=== PATIENT | female | born 1945 | race Caucasian/White ===

== ENCOUNTER → 2016-11-29 | Outpatient (CLI) | payer MEDICARE ==
--- NOTE | 2016-11-30 09:47 | MM ---
Reason for exam: screening (asymptomatic). Last mammogram was performed 1 year ago. History: Patient is postmenopausal. Family history of breast cancer in paternal cousin at age 64. Ultrasound-guided core biopsy of the left breast, January 17, 2004. Benign stereotactic core biopsy of the right breast, November 13, 2001. Core biopsy of the right breast. Excisional biopsy of the left breast. Took estrogen for 7 years beginning at age 49. Physical Findings: A clinical breast exam by your physician is recommended on an annual basis and results should be correlated with mammographic findings. MG Screening Mammo w CAD Bilateral CC and MLO view(s) were taken. Prior study comparison: November 25, 2015, bilateral MG screening mammo w CAD. November 05, 2014, bilateral MG screening mammo w CAD. The breast tissue is heterogeneously dense. This may lower the sensitivity of mammography. Finding: Architectural distortion in the upper outer quadrant of the left breast consistent with previous surgery. There is a 7mm oval density obscures margins right upper outer quadrant. ASSESSMENT: Incomplete: need additional imaging evaluation, BI-RAD 0 RECOMMENDATION: Special view mammogram of the right breast. If lesion persists on supplemental views, image directed ultrasound is recommended. [facility] will attempt to contact patient to return for supplemental views and ultrasound if indicated.
== END | disposition home or self-care (01) ==
LOC: RADMAMWWP 10:46
PROVIDERS: ATTEND Family Medicine
DX: Z12.31 Encounter for screening mammogram for malignant neoplasm of breast (principal)

== ENCOUNTER → 2016-12-05 | Outpatient (CLI) | payer MEDICARE ==
--- NOTE | 2016-12-05 10:23 | MM ---
Reason for exam: additional evaluation requested from abnormal screening. Last mammogram was performed less than 1 month ago. History: Patient is postmenopausal. Family history of breast cancer in paternal cousin at age 64. Ultrasound-guided core biopsy of the left breast, January 17, 2004. Benign stereotactic core biopsy of the right breast, November 13, 2001. Core biopsy of the right breast. Excisional biopsy of the left breast. Took estrogen for 7 years beginning at age 49. Physical Findings: Nurse did not find any significant physical abnormalities on exam. MG 3D Work Up W/Cad RT CC and MLO view(s) were taken of the right breast. Prior study comparison: November 29, 2016, bilateral MG screening mammo w CAD. November 25, 2015, bilateral MG screening mammo w CAD. The breast tissue is heterogeneously dense. This may lower the sensitivity of mammography. There is no discrete abnormality including area of concern. These results were verbally communicated with the patient and result sheet given to the patient on 12/05/16. ASSESSMENT: Incomplete: need additional imaging evaluation, BI-RAD 0 RECOMMENDATION: Ultrasound of the right breast. (upper outer quadrant)
--- NOTE | 2016-12-05 10:25 | USB ---
Reason for exam: additional evaluation requested from abnormal screening. History: Patient is postmenopausal. Family history of breast cancer in paternal cousin at age 64. Ultrasound-guided core biopsy of the left breast, January 17, 2004. Benign stereotactic core biopsy of the right breast, November 13, 2001. Core biopsy of the right breast. Excisional biopsy of the left breast. Took estrogen for 7 years beginning at age 49. US Breast Workup Limited RT Right breast ultrasound demonstrates a 0.9 x 0.5 x 0.6cm irregular, solid, hypoechoic lesion at 11 o'clock. These results were verbally communicated with the patient and result sheet given to the patient on 12/05/16. ASSESSMENT: Suspicious, BI-RAD 4 RECOMMENDATION: Ultrasound core biopsy of the right breast. Called Dr. Ferguson with mammographic findings and has scheduled an appointment for the patient for 01/10/17 at 10:[address] Peters. Biopsy scheduled for 12/20/16 at 12:20. PRELIMINARY REPORT CALLED AND FAXED TO DR. PETERS ON 12/05/16 AT 300/TP.
== END | disposition home or self-care (01) ==
LOC: RADMAMWWP 07:11
PROVIDERS: ATTEND Family Medicine
DX: R92.8 Other abnormal and inconclusive findings on diagnostic imaging of breast (principal)
CPT/HCPCS: 76642; G0206; G0279

== ENCOUNTER → 2016-12-20 | Day surgery (SDC) | payer MEDICARE ==
[~2016-12-20] MED LIST: ALPRAZolam 0.25 MG TAB ONE; BACITRACIN OINT 1 EACH PACKET TOPICAL ONE; LIDOCAINE 1% INJ 10MG/ML (20 ML MDV) ONE; SODIUM BICARB 4% 5 ML VIAL (0.48 MEQ/ML) ONE
--- NOTE | 2016-12-20 13:18 | USB ---
EXAMINATION TYPE: US biopsy breast VAD RT DATE OF EXAM: 12/20/2016 12:39 PM CLINICAL HISTORY: R92.8 abnormal mammo. TECHNIQUE: Ultrasound guided core biopsy of right breast. COMPARISON: NONE FINDINGS: The procedure of ultrasound guided core biopsy was explained to the patient. Benefits, alternatives, and risks were discussed. An informed consent was then obtained. Mammographic images and ultrasound images are reviewed. The ultrasound images are suspicious and warrant biopsy. Note is made however that this lesion is approximately 4 cm from the nipple where as the mammographic abnormality was 10 cm from the nipple. This ultrasound abnormality is not corresponding to the mammographic abnormality. Short-term follow-up of the mammographic abnormality in 6 months recommended. The patient was placed in supine positioning for imaging and for the procedure. The overlying skin was prepped and draped in usual sterile fashion. The area was cleansed with Betadine. Lidocaine buffered with bicarbonate was used as anesthetic into the skin and subcutaneous tissue up to area of concern in the right breast. A sheri was made with surgical scalpel. Under ultrasound guidance, a 12-gauge vacuum assisted mammotome biopsy device was used to obtain 6 core samples. A core sebas was placed at the biopsy site. The patient tolerated the procedure well without any immediate complication. The patient was sent for postprocedure mammogram for clip placement ordered by the physician. The patient was kept in the radiology department for short stay after the procedure and then discharged home in stable condition. Discharge instructions were reviewed with the patient. The patient will follow- up with her surgeon for the results. IMPRESSION: 1. Successful, uncomplicated ultrasound guided core biopsy of area of concern in the right breast. Recommendations: 1. Final Recommendations are pending pathology results. 2. In the absence of malignancy or clinically suspicious findings, short-term follow-up right breast mammogram in 6 months is recommended to reevaluate mammographic findings from 11/29/2016 Pathology Results: Benign BREAST, RIGHT, CORE BIOPSY: FIBROADENOMA/FIBROADENOMATOID HYPERPLASIA. BACKGROUND FIBROCYSTIC CHANGES INCLUDING FIBROSIS AND MICROCALCIFICATIONS. Recommendation Follow up ultrasound of the right breast in 6 months. KATINA
--- NOTE | 2016-12-20 14:31 | MM ---
Reason for exam: additional evaluation requested from abnormal screening. Last mammogram was performed less than 1 month ago. History: Patient is postmenopausal. Family history of breast cancer in paternal cousin at age 64. Ultrasound-guided core biopsy of the left breast, January 17, 2004. Benign stereotactic core biopsy of the right breast, November 13, 2001. Core biopsy of the right breast. Excisional biopsy of the left breast. Took estrogen for 7 years beginning at age 49. MG Diagnostic Mammo RT Wo CAD CC and ML view(s) were taken of the right breast. Prior study comparison: December 05, 2016, right breast MG 3d work up w/cad RT. November 29, 2016, bilateral MG screening mammo w CAD. ASSESSMENT: Post procedure mammogram for marker placement RECOMMENDATION: Ultrasound of the right breast in 6 months. PENDING PATHOLOGY RESULTS.
== END ==
LOC: RADUSWWP 11:08
PROVIDERS: ATTEND Surgery
DX: R92.8 Other abnormal and inconclusive findings on diagnostic imaging of breast (principal); D24.1 Benign neoplasm of right breast; N62 Hypertrophy of breast; N60.31 Fibrosclerosis of right breast; N64.89 Other specified disorders of breast; Z88.2 Allergy status to sulfonamides
CPT/HCPCS: 88305; 19083; G0206; A4648; J2001

== ENCOUNTER → 2017-07-15 | Outpatient (CLI) | payer MEDICARE ==
--- NOTE | 2017-07-15 14:50 | BD ---
EXAMINATION TYPE: MG DEXA axial skeleton. DATE OF EXAM: 07/15/2017 COMPARISON: NONE CLINICAL HISTORY: Postmenopausal female Height: 68.7 IN Weight: 173 LBS FRAX RISK QUESTIONS: Alcohol (3 or more units per day): NO Family History (Parent hip fracture): NO Glucocorticoids (More than 3mos): NO (Ex: prednisone, prednisolone, methylprednisolone, dexamethasone, and hydrocortisone). History of Fracture in Adulthood: NO Secondary Osteoporosis: 1. Type 1 Diabetes: NO 2. Hyperthyroidism: NO 3. Menopause before 45: NO 4. Malnutrition: NO 5. Chronic liver disease: NO Rheumatoid Arthritis: NO Current Tobacco Use: NO RISK FACTORS HISTORY OF: Active: YES Postmenopausal woman: AGE 49 Take estrogen and/or progesterone medications: NOT NOW How long: AGE 49 - 53 MEDICATIONS: Thyroid Medications: YES Which medication: Synthroid How Lon+ YEARS Additional Medications: CALCIUM, VIT D, SYNTHROID, CHOLESTEROL EXAM MEASUREMENTS: Bone mineral densitometry was performed using the Springpad System. Bone mineral density as measured about the Lumbar spine is: ----- L1-L4(G/cm2): 1.425 T Score Values are as follows: ----- L2: 2.0 ----- L3: 2.8 ----- L4: 1.9 ----- L1-L4: 2.0 Bone mineral density has: Increased 1.2% since study of: 06/01/2011 Bone mineral density about the R hip (g/cm2): 0.990 Bone mineral density about the L hip (g/cm2): 0.960 T Score values are as follows: -----R Neck: -0.3 -----L Neck: -0.6 -----R Total: -0.4 -----L Total: -0.7 Bone mineral density has: Decreased -10.7% since study of: 06/01/2011 IMPRESSION: Normal (Values between +1 and -1 indicate normal bone mass). Consider repeating this study in 5 year s or sooner if there is some new clinical indication. NOTE: T-SCORE=SD OF THE YOUNG ADULT MEAN.
== END | disposition home or self-care (01) ==
LOC: RADBDWWP 09:48
PROVIDERS: ATTEND Family Medicine
DX: N95.8 Other specified menopausal and perimenopausal disorders (principal)
CPT/HCPCS: 77080

== ENCOUNTER → 2017-07-15 | Outpatient (CLI) | payer MEDICARE ==
--- NOTE | 2017-07-15 12:03 | MM ---
Reason for exam: follow-up at short interval from prior study. Last mammogram was performed 7 months ago. History: Patient is postmenopausal. Family history of breast cancer in paternal cousin at age 64. Benign US biopsy breast VAD RT of the right breast, December 20, 2016. Ultrasound-guided core biopsy of the left breast, January 17, 2004. Benign stereotactic core biopsy of the right breast, November 13, 2001. Core biopsy of the right breast. Excisional biopsy of the left breast. Took estrogen for 7 years beginning at age 49. Physical Findings: Nurse did not find any significant physical abnormalities on exam. MG 3D Diag Mammo W/Cad RT CC and MLO view(s) were taken of the right breast. Prior study comparison: December 20, 2016, right breast MG diagnostic mammo RT wo CAD. December 05, 2016, right breast MG 3d work up w/cad RT. The breast tissue is heterogeneously dense. This may lower the sensitivity of mammography. There are numerous scattered stable calcifications. No suspicious abnormality. Post biopsy changes on right breast x 2. These results were verbally communicated with the patient and result sheet given to the patient on 07/15/17. ASSESSMENT: Benign, BI-RAD 2 RECOMMENDATION: Routine screening mammogram of both breasts in 4 months. Back on schedule, November 2017.
== END | disposition home or self-care (01) ==
LOC: RADMAMWWP 09:51
PROVIDERS: ATTEND Surgery
DX: R92.8 Other abnormal and inconclusive findings on diagnostic imaging of breast (principal)
CPT/HCPCS: 77080; G0206; G0279

== ENCOUNTER → 2017-11-29 | Outpatient (CLI) | payer MEDICARE ==
--- NOTE | 2017-12-03 10:15 | MM ---
Reason for exam: screening (asymptomatic). Last mammogram was performed 4 months ago. History: Patient is postmenopausal. Family history of breast cancer in paternal cousin at age 64. Benign US biopsy breast VAD RT of the right breast, December 20, 2016. Ultrasound-guided core biopsy of the left breast, January 17, 2004. Benign stereotactic core biopsy of the right breast, November 13, 2001. Core biopsy of the right breast. Excisional biopsy of the left breast. Took estrogen for 7 years beginning at age 49. Physical Findings: A clinical breast exam by your physician is recommended on an annual basis and results should be correlated with mammographic findings. MG 3D Screening Mammo W/Cad Bilateral CC and MLO view(s) were taken. Prior study comparison: July 15, 2017, right breast MG 3d diag mammo w/cad RT. December 20, 2016, right breast MG diagnostic mammo RT wo CAD. The breast tissue is extremely dense which could obscure a lesion on mammography. Finding: There are increased round, regional calcifications in the outer quadrant of the right breast, MLO appears more stable. Previous mammotome biopsy in the left breast. Post surgical changes in the left upper outer quadrant. New finding since July 15, 2017 and December 20, 2016. ASSESSMENT: Incomplete: need additional imaging evaluation, BI-RAD 0 RECOMMENDATION: Special view mammogram of the right breast. [facility] will attempt to contact patient to return for supplemental views.
== END | disposition home or self-care (01) ==
LOC: RADMAMWWP 13:47
PROVIDERS: ATTEND Family Medicine
DX: Z12.31 Encounter for screening mammogram for malignant neoplasm of breast (principal)
CPT/HCPCS: 77063; 77067

== ENCOUNTER → 2017-12-04 | Outpatient (CLI) | payer MEDICARE ==
--- NOTE | 2017-12-04 08:23 | MM ---
Reason for exam: additional evaluation requested from abnormal screening. Last mammogram was performed less than 1 month ago. History: Patient is postmenopausal. Family history of breast cancer in paternal cousin at age 64. Benign US biopsy breast VAD RT of the right breast, December 20, 2016. Ultrasound-guided core biopsy of the left breast, January 17, 2004. Benign stereotactic core biopsy of the right breast, November 13, 2001. Core biopsy of the right breast. Excisional biopsy of the left breast. Took estrogen for 7 years beginning at age 49. MG 3D Work Up W/Cad RT ML, CC with magnification, and ML with magnification view(s) were taken of the right breast. Prior study comparison: November 29, 2017, bilateral MG 3d screening mammo w/cad. July 15, 2017, right breast MG 3d diag mammo w/cad RT. The breast tissue is heterogeneously dense. This may lower the sensitivity of mammography. Previous mammotome biopsy in the right breast. Regional round and punctate calcifications upper outer right breast seem to have been present back to 2010. A 6 month follow up cam be performed. These results were verbally communicated with the patient and result sheet given to the patient on 12/04/17. ASSESSMENT: Probably benign, BI-RAD 3 RECOMMENDATION: Follow-up diagnostic mammogram of the right breast in 6 months.
== END | disposition home or self-care (01) ==
LOC: RADMAMWWP 07:26
PROVIDERS: ATTEND Family Medicine
DX: R92.8 Other abnormal and inconclusive findings on diagnostic imaging of breast (principal); Z80.3 Family history of malignant neoplasm of breast
CPT/HCPCS: 77065; G0279

== ENCOUNTER → 2018-06-10 | Outpatient (CLI) | payer MEDICARE ==
--- NOTE | 2018-06-10 14:44 | MM ---
Reason for exam: follow-up at short interval from prior study. Last mammogram was performed 6 months ago. History: Patient is postmenopausal. Family history of breast cancer in paternal cousin at age 64. Benign US biopsy breast VAD RT of the right breast, December 20, 2016. Ultrasound-guided core biopsy of the left breast, January 17, 2004. Benign stereotactic core biopsy of the right breast, November 13, 2001. Core biopsy of the right breast. Excisional biopsy of the left breast. Took estrogen for 7 years beginning at age 49. Physical Findings: Nurse did not find any significant physical abnormalities on exam. MG 3D Diag Mammo W/Cad RT CC and MLO view(s) were taken of the right breast. Prior study comparison: December 04, 2017, right breast MG 3d work up w/cad RT. November 29, 2017, bilateral MG 3d screening mammo w/cad. July 15, 2017, right breast MG 3d diag mammo w/cad RT. December 20, 2016, right breast MG diagnostic mammo RT wo CAD. The breast tissue is extremely dense which could obscure a lesion on mammography. Finding: There are stable fine, regional calcifications in the upper outer quadrant, middle position of the right breast. Chronic nodularity right. No significant new finding since 12/04/2017. These results were verbally communicated with the patient and result sheet given to the patient on 06/10/18. ASSESSMENT: Benign, BI-RAD 2 RECOMMENDATION: Return to routine screening mammogram schedule for both breasts.
== END | disposition home or self-care (01) ==
LOC: RADMAMWWP 08:47
PROVIDERS: ATTEND Family Medicine
DX: R92.2 Inconclusive mammogram (principal)
CPT/HCPCS: 77065; G0279; 77061

== ENCOUNTER 2018-06-13 08:22 | Emergency (ER) | payer MEDICARE ==
[2018-06-13 08:41] VITALS: RESP 18
--- NOTE | 2018-06-13 09:17 | ED ---
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 Patient reports that this morning she woke up and was having a severe panic attack. She started. Her short of breath. She denies any specific chest pain but she felt that there was tightness when she would breathe. She states it is somewhat diminished this morning. Patient states that she has had panic attacks in the past swelling similar to this. She's been under much stress with her in the hospital. Patient states that she previously was on amxiety medication has not been on anything quite some time. Patient states she try to call her primary care physician however they did not of any available appointments. Patient denies any specific chest pain or severe shortness breath this time. She denies any significant cardiac or pulmonary issues. - Related Data Home Medications: Home Medications Medication Instructions Recorded Confirmed Levothyroxine Sodium [Synthroid] 100 mcg PO DAILY 04/03/14 10/06/15 Simvastatin [Zocor] 40 mg PO HS 04/03/14 10/06/15 Cholecalciferol [Vitamin D3] 2,000 unit PO DAILY 08/25/15 10/06/15 Multivitamin/Iron/Folic Acid 1 tab PO DAILY 08/25/15 10/06/15 [Centrum Complete Multivit Tab] Previous Rx's Medication Instructions Recorded Docusate Sodium [Colace] 50 mg PO AC-BRKFST #30 capsule 09/14/15 Hydrocodone/Acetaminophen [[place] 1 - 2 each PO Q6HR PRN #60 tab 09/14/15 5-325] traMADol HCl [Ultram] 50 mg PO Q6H PRN #40 tab 09/15/15 ALPRAZolam [Xanax] 0.5 mg PO BID PRN #10 tablet 06/13/18 Allergies/Adverse Reactions: Allergies Allergy/AdvReac Type Severity Reaction Status Date / Time Sulfa (Sulfonamide Allergy Rash/Hives Verified 06/13/18 08:41 Antibiotics) Review of Systems ROS Statement: Those systems with pertinent positive or pertinent negative responses have been documented in the HPI. ROS Other: All systems not noted in ROS Statement are negative. Past Medical History Past Medical History: Hearing Disorder / Deafness, Hyperlipidemia, Osteoarthritis (OA), Skin Disorder, Thyroid Disorder Additional Past Medical History / Comment(s): Other HX: LICHEN PLANUS OCC ON SKIN. VARICOSE VEIN. 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 History of Any Multi-Drug Resistant Organisms: None Reported Past Surgical History: Breast Surgery, Ear Surgery, Joint Replacement, Orthopedic Surgery Additional Past Surgical History / Comment(s): 09/13/15 Total L knee arthroplasty. Other SX: BREAST BIOPSIES. LT STAPEDECTOMY. Decompression of LT Facial Nerve. D&C 2012. Past Anesthesia/Blood Transfusion Reactions: No Reported Reaction Past Psychological History: Depression Smoking Status: Former smoker Past Alcohol Use History: Occasional Past Drug Use History: None Reported - Past Family History Mother Brother(s) Family Medical History: Deep Vein Thrombosis (DVT) Father Brother(s) Family Medical History: Cancer Mother Family Medical History: Deep Vein Thrombosis (DVT) Additional Family Medical History / Comment(s): Mother at age 46yrs of post op blood clots. Father Family Medical History: Cancer, Coronary Artery Disease (CAD) Additional Family Medical History / Comment(s): Father of prostate cancer at age 72 yrs. General Exam - General Exam Comments Initial Comments: 73-year-old female. Alert and oriented. Pleasant. No significant distress. Limitations: no limitations General appearance: alert, in no apparent distress Head exam: Present: atraumatic, normocephalic, normal inspection Eye exam: Present: normal appearance, PERRL, EOMI. Absent: scleral icterus, conjunctival injection, periorbital swelling ENT exam: Present: normal exam, normal oropharynx, mucous membranes moist Neck exam: Present: normal inspection. Absent: tenderness, meningismus, lymphadenopathy Respiratory exam: Present: normal lung sounds bilaterally. Absent: respiratory distress, wheezes, rales, rhonchi, stridor Cardiovascular Exam: Present: regular rate, normal rhythm, normal heart sounds. Absent: systolic murmur, diastolic murmur, rubs, gallop, clicks GI/Abdominal exam: Present: soft, normal bowel sounds. Absent: distended, tenderness, guarding, rebound, rigid Extremities exam: Present: normal inspection, full ROM, normal capillary refill. Absent: tenderness, pedal edema, joint swelling, calf tenderness Back exam: Present: normal inspection Neurological exam: Present: alert, oriented X3, CN II-XII intact Psychiatric exam: Present: normal affect, normal mood, anxious Skin exam: Present: warm, dry, intact, normal color. Absent: rash Course Vital Signs 06/13/18 06/13/18 08:38 10:12 Temperature 97.8 F 98.0 F Pulse Rate 102 H 70 Respiratory 18 18 Rate Blood Pressure 154/93 144/83 O2 Sat by Pulse 100 98 Oximetry Medical Decision Making 06/13/18 10:47 EKG performed at 920 shows normal sinus rhythm with minimal voltage criteria for LVH. Abnormal EKG noted. Ventricular rate 70 bpm. Parent was 134 ms. There is duration 94 ms. QT QTc is 414/447. There is no evidence of any acute changes between this EKG and from October 2015. Disposition Clinical Impression: Anxiety Disposition: HOME SELF-CARE Condition: Good Instructions: Generalized Anxiety Disorder (ED) Additional Instructions: Patient advised to have close follow-up with primary care physician. Return to emergency department if any alarming signs or symptoms occur. Prescriptions: ALPRAZolam [Xanax] 0.5 mg PO BID PRN #10 tablet PRN Reason: Anxiety Is patient prescribed a controlled substance at d/c from ED?: Yes If prescribed controlled substance>3 days was MAPS reviewed?: Prescribed <3 Days Referrals: Estephania Ferguson MD [Primary Care Provider] - 1-2 days Time of Disposition: 10:00
[2018-06-13] MEDS ORDERED: LORazepam 1 MG TAB PO STA (09:27)
[2018-06-13 10:13] VITALS: BP 144/83; PULSE 70; TEMP 98
== END 2018-06-13 10:12 | disposition home or self-care (01) ==
LOC: EC 08:22
DX: F41.9 Anxiety disorder, unspecified (principal); R94.31 Abnormal electrocardiogram [ECG] [EKG]; E78.5 Hyperlipidemia, unspecified; E03.9 Hypothyroidism, unspecified; H91.90 Unspecified hearing loss, unspecified ear; M19.90 Unspecified osteoarthritis, unspecified site; Z87.891 Personal history of nicotine dependence; Z79.899 Other long term (current) drug therapy; Z88.2 Allergy status to sulfonamides; Z96.652 Presence of left artificial knee joint
CPT/HCPCS: 93005; 99284

== ENCOUNTER → 2018-12-11 | Outpatient (CLI) | payer MEDICARE ==
--- NOTE | 2018-12-12 14:33 | MM ---
Reason for exam: screening (asymptomatic). Last mammogram was performed 6 months ago. History: Patient is postmenopausal. Family history of breast cancer in paternal cousin at age 64. Benign US biopsy breast VAD RT of the right breast, December 20, 2016. Ultrasound-guided core biopsy of the left breast, January 17, 2004. Benign stereotactic core biopsy of the right breast, November 13, 2001. Core biopsy of the right breast. Excisional biopsy of the left breast. Took estrogen for 7 years beginning at age 49. Physical Findings: A clinical breast exam by your physician is recommended on an annual basis and results should be correlated with mammographic findings. MG 3D Screening Mammo W/Cad Bilateral CC and MLO view(s) were taken. Prior study comparison: June 10, 2018, right breast MG 3d diag mammo w/cad RT. December 04, 2017, right breast MG 3d work up w/cad RT. The breast tissue is heterogeneously dense. This may lower the sensitivity of mammography. Right biopsy marker. Post biopsy change on the left. ASSESSMENT: Benign, BI-RAD 2 RECOMMENDATION: Routine screening mammogram of both breasts in 1 year.
== END | disposition home or self-care (01) ==
LOC: RADMAMWWP 14:57
PROVIDERS: ATTEND Family Medicine
DX: Z12.31 Encounter for screening mammogram for malignant neoplasm of breast (principal)
CPT/HCPCS: 77063; 77067

== ENCOUNTER 2019-05-12 02:15 | Emergency (ER) | payer MEDICARE ==
[2019-05-12 02:24] VITALS: TEMP 97.9
--- NOTE | 2019-05-12 03:42 | ED ---
Back Pain HPI - General Chief Complaint: Back Pain/Injury Stated Complaint: Back Pain, nausea Time Seen by Provider: 05/12/19 03:31 Source: patient Limitations: no limitations - History of Present Illness Initial Comments: 's patient is a 74-year-old woman who presents to be evaluated for right flank pain. The patient states that she was in her usual state of health until appr oximately a week ago when she noticed she was having some nausea. Lasted for 1- 2 days and then was a little bit better. She states that she then started having some right flank pain going on about 4-5 days now. She describes as aching, constant, without worsening or relieving factors. It is moderate in intensity. She denies any radiation of the pain. She has not had change in bladder or bowel function. MD Complaint: back pain -: days(s) Similar Symptoms Previously: No Place: home Severity: moderate Quality: aching Consistency: constant Improves With: none Worsens With: none Associated Symptoms: nausea/vomiting (Nausea) - Related Data Home Medications Medication Instructions Recorded Confirmed Levothyroxine Sodium [Synthroid] 100 mcg PO DAILY 04/03/14 10/06/15 Simvastatin [Zocor] 40 mg PO HS 04/03/14 10/06/15 Cholecalciferol [Vitamin D3 (25 2,000 unit PO DAILY 08/25/15 10/06/15 Mcg = 1000 Iu)] Multivitamin/Iron/Folic Acid 1 tab PO DAILY 08/25/15 10/06/15 [Centrum Complete Multivit Tab] Previous Rx's Medication Instructions Recorded Docusate Sodium [Colace] 50 mg PO AC-BRKFST #30 capsule 09/14/15 Hydrocodone/Acetaminophen [[place] 1 - 2 each PO Q6HR PRN #60 tab 09/14/15 5-325] traMADol HCl [Ultram] 50 mg PO Q6H PRN #40 tab 09/15/15 ALPRAZolam [Xanax] 0.5 mg PO BID PRN #10 tablet 06/13/18 Nitrofurantoin Monohyd/M-Cryst 100 mg PO Q12HR #6 cap 05/12/19 [Macrobid] Allergies Allergy/AdvReac Type Severity Reaction Status Date / Time Sulfa (Sulfonamide Allergy Rash/Hives Verified 06/13/18 08:41 Antibiotics) Review of Systems ROS Statement: Those systems with pertinent positive or pertinent negative responses have been documented in the HPI. ROS Other: All systems not noted in ROS Statement are negative. Constitutional: Denies: fever, chills, weakness Respiratory: Denies: cough, dyspnea Cardiovascular: Denies: chest pain, palpitations, edema, syncope Gastrointestinal: Reports: abdominal pain (Right flank), nausea. Denies: vomiting, diarrhea, constipation, melena, hematochezia Genitourinary: Denies: dysuria, hematuria Musculoskeletal: Denies: back pain Skin: Denies: rash Neurological: Denies: headache, weakness Past Medical History Past Medical History: Hearing Disorder / Deafness, Hyperlipidemia, Osteoarthritis (OA), Skin Disorder, Thyroid Disorder Additional Past Medical History / Comment(s): Other HX: LICHEN PLANUS OCC ON SKIN. VARICOSE VEIN. 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 History of Any Multi-Drug Resistant Organisms: None Reported Past Surgical History: Breast Surgery, Ear Surgery, Joint Replacement, Orthopedic Surgery Additional Past Surgical History / Comment(s): 09/13/15 Total L knee arthroplasty. Other SX: BREAST BIOPSIES. LT STAPEDECTOMY. Decompression of LT Facial Nerve. D&C 2012. Past Anesthesia/Blood Transfusion Reactions: No Reported Reaction Past Psychological History: Depression Smoking Status: Former smoker Past Alcohol Use History: Occasional Past Drug Use History: None Reported - Past Family History Mother Brother(s) Family Medical History: Deep Vein Thrombosis (DVT) Father Brother(s) Family Medical History: Cancer Mother Family Medical History: Deep Vein Thrombosis (DVT) Additional Family Medical History / Comment(s): Mother at age 46yrs of post op blood clots. Father Family Medical History: Cancer, Coronary Artery Disease (CAD) Additional Family Medical History / Comment(s): Father of prostate cancer at age 72 yrs. General Exam Limitations: no limitations General appearance: alert, in no apparent distress Head exam: Present: atraumatic, normocephalic Eye exam: Present: normal appearance. Absent: scleral icterus, conjunctival injection Respiratory exam: Present: normal lung sounds bilaterally. Absent: respiratory distress, wheezes, rales, rhonchi, stridor Cardiovascular Exam: Present: regular rate, normal rhythm, normal heart sounds. Absent: systolic murmur, diastolic murmur, rubs, gallop GI/Abdominal exam: Present: soft. Absent: distended, tenderness, guarding, rebound, rigid, mass Extremities exam: Present: normal inspection, normal capillary refill. Absent: pedal edema, calf tenderness Back exam: Present: normal inspection, CVA tenderness (R). Absent: CVA tenderness (L) Neurological exam: Present: alert Skin exam: Present: warm, dry, intact, normal color. Absent: rash Course Vital Signs 05/12/19 02:21 Temperature 97.9 F Pulse Rate 74 Respiratory 18 Rate Blood Pressure 173/102 O2 Sat by Pulse 98 Oximetry Medical Decision Making - Lab Data Result diagrams: 05/12/19 03:47 05/12/19 03:47 Lab Results 05/12/19 05/12/19 05/12/19 Range/Units 03:47 03:47 03:47 WBC 4.3 (3.8-10.6) k/uL RBC 4.47 (3.80-5.40) m/uL Hgb 13.8 (11.4-16.0) gm/dL Hct 43.4 (34.0-46.0) % MCV 97.1 (80.0-100.0) fL MCH 30.8 (25.0-35.0) pg MCHC 31.8 (31.0-37.0) g/dL RDW 12.9 (11.5-15.5) % Plt Count 272 (150-450) k/uL Neutrophils % 59 % Lymphocytes % 28 % Monocytes % 6 % Eosinophils % 4 % Basophils % 1 % Neutrophils # 2.5 (1.3-7.7) k/uL Lymphocytes # 1.2 (1.0-4.8) k/uL Monocytes # 0.3 (0-1.0) k/uL Eosinophils # 0.2 (0-0.7) k/uL Basophils # 0.0 (0-0.2) k/uL Sodium 140 (137-145) mmol/L Potassium 4.1 (3.5-5.1) mmol/L Chloride 106 (98-107) mmol/L Carbon Dioxide 27 (22-30) mmol/L Anion Gap 7 mmol/L BUN 21 H (7-17) mg/dL Creatinine 0.88 (0.52-1.04) mg/dL Est GFR (CKD-EPI)AfAm 74 (>60 ml/min/1.73 sqM) Est GFR (CKD-EPI)NonAf 64 (>60 ml/min/1.73 sqM) Glucose 100 H (74-99) mg/dL Calcium 9.7 (8.4-10.2) mg/dL Total Bilirubin 0.5 (0.2-1.3) mg/dL AST 26 (14-36) U/L ALT 21 (9-52) U/L Alkaline Phosphatase 69 (38-126) U/L Total Protein 7.1 (6.3-8.2) g/dL Albumin 4.3 (3.5-5.0) g/dL Amylase 51 (30-110) U/L Lipase 103 (23-300) U/L Urine Color Light Yellow Urine Appearance Clear (Clear) Urine pH 6.0 (5.0-8.0) Ur Specific [place] 1.008 (1.001-1.035) Urine Protein Negative (Negative) Urine Glucose (UA) Negative (Negative) Urine Ketones Negative (Negative) Urine Blood Trace H (Negative) Urine Nitrite Negative (Negative) Urine Bilirubin Negative (Negative) Urine Urobilinogen <2.0 (<2.0) mg/dL Ur Leukocyte Esterase Moderate H (Negative) Urine RBC 3 (0-5) /hpf Urine WBC 10 H (0-5) /hpf Urine Mucus Rare H (None) /hpf Disposition Clinical Impression: Lumbar back pain Disposition: HOME SELF-CARE Condition: Good Instructions (If sedation given, give patient instructions): Acute Low Back Pain (ED), Urinary Tract Infection in Women (ED) Prescriptions: Nitrofurantoin Monohyd/M-Cryst [Macrobid] 100 mg PO Q12HR #6 cap Is patient prescribed a controlled substance at d/c from ED?: No Referrals: Estephania Ferguson MD [Primary Care Provider] - 1-2 days
[2019-05-12 04:12] LABS: Basophils % (A) 1 %; Eosinophils # (A) 0.2 k/uL (0-0.7); Eosinophils % (A) 4 %; HCT 43.4 % (34.0-46.0); HGB 13.8 gm/dL (11.4-16.0); Lymphocytes # (A) 1.2 k/uL (1.0-4.8); Lymphocytes % (A) 28 %; MCH 30.8 pg (25.0-35.0); MCHC 31.8 g/dL (31.0-37.0); MCV 97.1 fL (80.0-100.0); Monocytes # (A) 0.3 k/uL (0-1.0); Monocytes % (A) 6 %; Neutrophils # (A) 2.5 k/uL (1.3-7.7); Neutrophils % (A) 59 %; Platelet Count 272 k/uL (150-450); RBC 4.47 m/uL (3.80-5.40); RDW 12.9 % (11.5-15.5); WBC 4.3 k/uL (3.8-10.6)
[2019-05-12] MEDS ORDERED: ACETAMINOPHEN TAB 325 MG TAB PO STA (04:13)
[2019-05-12 04:21] LABS: Appearance,Urine Clear (Clear); Bilirubin,Urine Negative (Negative); Blood,Urine Trace (Negative); Color,Urine Light Yellow; Glucose,Urine (UA) Negative (Negative); Ketones,Urine Negative (Negative); Leukocyte Esterase,Urine Moderate (Negative); Mucus,Urine Rare /hpf; Nitrite,Urine Negative (Negative); Protein,Urine Negative (Negative); RBC,Urine 3 /hpf (0-5); Specific Gravity,Urine 1.008 (1.001-1.035); Urobilinogen,Urine <2.0 mg/dL (<2.0); WBC,Urine 10 /hpf (0-5)
[2019-05-12 04:22] LABS: Albumin 4.3 g/dL (3.5-5.0); Calcium 9.7 mg/dL (8.4-10.2); Potassium 4.1 mmol/L (3.5-5.1); Total Bilirubin 0.5 mg/dL (0.2-1.3); Total Protein 7.1 g/dL (6.3-8.2)
--- NOTE | 2019-05-12 04:55 | CT ---
EXAM: CT Abdomen and Pelvis Without Intravenous Contrast CLINICAL HISTORY: ITS.REASON CT Reason: right flank pain TECHNIQUE: Axial computed tomography images of the abdomen and pelvis without intravenous contrast. CTDI is 8 mGy and DLP is 460.2 mGy-cm. This CT exam was performed using one or more of the following dose reduction techniques: automated exposure control, adjustment of the mA and/or kV according to patient size, and/or use of iterative reconstruction technique. COMPARISON: No relevant prior studies available. FINDINGS: Artifacts: There is some respiratory artifact involving the inferior thorax and superior abdomen. Lung bases: Subsegmental changes are noted involving the dependent lung bases. ABDOMEN: Liver: Unremarkable. Gallbladder and bile ducts: Unremarkable. No calcified stones. No ductal dilation. Pancreas: Unremarkable. No ductal dilation. Spleen: Unremarkable. No splenomegaly. Adrenals: Unremarkable. No mass. Kidneys and ureters: No significant hydronephrosis or ureteral stones identified. Incidental 2 mm calcification in the region of a right mid pole calyx consistent with nonobstructing nephrolithiasis. Stomach and bowel: Evaluation of bowel mucosa is limited without contrast. Diverticulosis throughout the colon is identified. No definitive CT findings to suggest diverticulitis. No obstruction. PELVIS: Appendix: A normal caliber appendix is noted in the right lower quadrant. Bladder: Mild mucosal prominence of the bladder is presumed related to underdistention. No stones. Reproductive: Calcification along the right anterolateral uterus is a presumed incidental calcified fibroid. ABDOMEN and PELVIS: Intraperitoneal space: Unremarkable. No free air. No significant fluid collection. Bones/joints: Multilevel degenerative changes of the inferior lumbar spine with disc space narrowing and marginal hypertrophic osteophyte formation. No acute fracture. No dislocation. Soft tissues: Unremarkable. Vasculature: Unremarkable. No abdominal aortic aneurysm. Lymph nodes: Unremarkable. No enlarged lymph nodes. IMPRESSION: 1. No significant hydronephrosis or ureteral stones identified. No bladder calcifications identified. 2. Evaluation of bowel mucosa is limited without contrast. Diverticulosis throughout the colon is identified without definitive CT findings to suggest diverticulitis. No bowel obstruction. No free intraperitoneal fluid or pneumoperitoneum. Normal caliber appendix incidentally noted.
[2019-05-12] MEDS ORDERED: NITROFURANTOIN MONOHYD/M-CRYST 100 MG CAP PO STA (05:39)
[2019-05-12 05:52] VITALS: BP 156/84; PULSE 63; RESP 14
== END 2019-05-12 05:46 | disposition home or self-care (01) ==
LOC: EC 02:15
DX: M54.5 Low back pain (principal); R11.2 Nausea with vomiting, unspecified; E78.5 Hyperlipidemia, unspecified; E03.9 Hypothyroidism, unspecified; M19.90 Unspecified osteoarthritis, unspecified site; Z79.890 Hormone replacement therapy; Z79.899 Other long term (current) drug therapy; Z88.2 Allergy status to sulfonamides; Z96.652 Presence of left artificial knee joint; Z87.891 Personal history of nicotine dependence
CPT/HCPCS: 36415; 74176; 80053; 81001; 82150; 83690; 85025; 99284

== ENCOUNTER → 2019-08-26 | Outpatient (CLI) | payer MEDICARE ==
--- NOTE | 2019-08-26 16:34 | BD ---
EXAMINATION TYPE: Axial Bone Density DATE OF EXAM: 08/26/2019 COMPARISON: 2017 CLINICAL HISTORY: disorder of bone Height: 5'9 Weight: 175 FRAX RISK QUESTIONS: Secondary Osteoporosis: RISK FACTORS HISTORY OF: Postmenopausal woman: y MEDICATIONS: Thyroid Medications: Which medication: Synthroid How Lon years Additional Medications: cholesterol Additional History: EXAM MEASUREMENTS: Bone mineral densitometry was performed using the Digg System. Bone mineral density as measured about the Lumbar spine is: ----- L1-L4(G/cm2): 1.442 T Score Values are as follows: ----- L2: 2.5 ----- L3: 2.6 ----- L4: 2.4 ----- L1-L4:2.2 Bone mineral density has: Increased 2.2% since study of: 07/15/2017 Bone mineral density about the R hip (g/cm2): 0.984 Bone mineral density about the L hip (g/cm2): 0.936 T Score values are as follows: -----R Neck: -0.4 -----L Neck: -0.7 -----R Total: -0.6 -----L Total: -0.6 Bone mineral density has: Decreased -1.0% since study of: 07/15/2017 IMPRESSION: Normal (Values between +1 and -1 indicate normal bone mass). Consider repeating this study in 5 year s or sooner if there is some new clinical indication. NOTE: T-SCORE=SD OF THE YOUNG ADULT MEAN.
== END | disposition home or self-care (01) ==
LOC: RADBDWWP 13:16
PROVIDERS: ATTEND Family Medicine
DX: M89.9 Disorder of bone, unspecified (principal)
CPT/HCPCS: 77080

== ENCOUNTER → 2019-12-18 | Outpatient (CLI) | payer MEDICARE ==
--- NOTE | 2019-12-21 09:45 | MM ---
Reason for exam: screening (asymptomatic). Last mammogram was performed 1 year ago. History: Patient is postmenopausal. Family history of breast cancer in paternal cousin at age 64. Benign US biopsy breast VAD RT of the right breast, December 20, 2016. Ultrasound-guided core biopsy of the left breast, January 17, 2004. Benign stereotactic core biopsy of the right breast, November 13, 2001. Core biopsy of the right breast. Excisional biopsy of the left breast. Took estrogen for 7 years beginning at age 49. Physical Findings: A clinical breast exam by your physician is recommended on an annual basis and results should be correlated with mammographic findings. MG 3D Screening Mammo W/Cad Bilateral CC and MLO view(s) were taken. Prior study comparison: December 11, 2018, bilateral MG 3d screening mammo w/cad. June 10, 2018, right breast MG 3d diag mammo w/cad RT. The breast tissue is heterogeneously dense. This may lower the sensitivity of mammography. There is chronic nodularity bilaterally. Stable post operative distortion left breast. No significant changes when compared with prior studies. ASSESSMENT: Benign, BI-RAD 2 RECOMMENDATION: Routine screening mammogram of both breasts in 1 year.
== END | disposition home or self-care (01) ==
LOC: RADMAMWWP 07:50
PROVIDERS: ATTEND Family Medicine
DX: Z12.31 Encounter for screening mammogram for malignant neoplasm of breast (principal)
CPT/HCPCS: 77063; 77067

== ENCOUNTER → 2021-01-02 | Outpatient (CLI) | payer MEDICARE ==
--- NOTE | 2021-01-04 08:15 | MM ---
Reason for exam: screening (asymptomatic). Last mammogram was performed 1 year and 1 month ago. History: Patient is postmenopausal. Family history of breast cancer in paternal cousin at age 64. Benign US biopsy breast VAD RT of the right breast, December 20, 2016. Ultrasound-guided core biopsy of the left breast, January 17, 2004. Benign stereotactic core biopsy of the right breast, November 13, 2001. Core biopsy of the right breast. Excisional biopsy of the left breast. Took estrogen for 7 years beginning at age 49. Physical Findings: A clinical breast exam by your physician is recommended on an annual basis and results should be correlated with mammographic findings. MG 3D Screening Mammo W/Cad Bilateral CC and MLO view(s) were taken. XCCL view(s) were taken of the right breast. Prior study comparison: December 18, 2019, bilateral MG 3d screening mammo w/cad. The breast tissue is heterogeneously dense. This may lower the sensitivity of mammography. Previous mammotome biopsy in the right breast. There is chronic nodularity in the right breast. Stable distortion outer left CC. No significant changes when compared with prior studies. ASSESSMENT: Benign, BI-RAD 2 RECOMMENDATION: Routine screening mammogram of both breasts in 1 year.
== END ==
LOC: RADMAMWWP 15:03
PROVIDERS: ATTEND Family Medicine
DX: Z12.31 Encounter for screening mammogram for malignant neoplasm of breast (principal); Z78.0 Asymptomatic menopausal state
CPT/HCPCS: 77063; 77067

== ENCOUNTER 2021-02-03 12:38 | Emergency (ER) | payer MEDICARE ==
[2021-02-03 13:22] VITALS: TEMP 97.8
[2021-02-03] MEDS ORDERED: KETOROLAC 15 MG/ML 1 ML VIAL IVP STA (15:46)
[2021-02-03] MEDS ORDERED: SODIUM CHLORIDE 0.9% 500 ML 500 ML IV STA (15:46)
[2021-02-03] MEDS ORDERED: METOCLOPRAMIDE 5 MG/ML 2 ML VIAL IVP STA (15:46)
--- NOTE | 2021-02-03 15:51 | ED ---
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 She has a remote family history of cerebral bleeds. MD Complaint: headache - Related Data Home Medications Medication Instructions Recorded Confirmed Simvastatin [Zocor] 40 mg PO HS 04/03/14 02/03/21 Citalopram Hydrobromide [CeleXA] 10 mg PO DAILY 02/03/21 02/03/21 Levomefolate Calcium 7.5 mg PO DAILY 02/03/21 02/03/21 [l-Methylfolate Calcium] Levothyroxine Sodium [Synthroid] 112 mcg PO DAILY 02/03/21 02/03/21 cycloSPORINE [Restasis] 1 drop LEFT EYE BID 02/03/21 02/03/21 Allergies Allergy/AdvReac Type Severity Reaction Status Date / Time Sulfa (Sulfonamide Allergy Rash/Hives Verified 02/03/21 16:54 Antibiotics) Review of Systems ROS Statement: Those systems with pertinent positive or pertinent negative responses have been documented in the HPI. ROS Other: All systems not noted in ROS Statement are negative. Past Medical History Past Medical History: Hearing Disorder / Deafness, Hyperlipidemia, Osteoarthritis (OA), Skin Disorder, Thyroid Disorder Additional Past Medical History / Comment(s): Other HX: LICHEN PLANUS OCC ON SKIN. VARICOSE VEIN. 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 History of Any Multi-Drug Resistant Organisms: None Reported Past Surgical History: Breast Surgery, Ear Surgery, Joint Replacement, Orthopedic Surgery Additional Past Surgical History / Comment(s): 09/13/15 Total L knee arth roplasty. Other SX: BREAST BIOPSIES. LT STAPEDECTOMY. Decompression of LT Facial Nerve. D&C 2012. Past Anesthesia/Blood Transfusion Reactions: No Reported Reaction Past Psychological History: Depression Smoking Status: Never smoker Past Alcohol Use History: Occasional Past Drug Use History: None Reported - Past Family History Mother Brother(s) Family Medical History: Deep Vein Thrombosis (DVT) Father Brother(s) Family Medical History: Cancer Mother Family Medical History: Deep Vein Thrombosis (DVT) Additional Family Medical History / Comment(s): Mother at age 46yrs of post op blood clots. Father Family Medical History: Cancer, Coronary Artery Disease (CAD) Additional Family Medical History / Comment(s): Father of prostate cancer at age 72 yrs. General Exam - General Exam Comments Initial Comments: This is a well-developed well-nourished awake alert oriented 3 female Limitations: no limitations General appearance: alert, in no apparent distress Head exam: Present: atraumatic, normocephalic, normal inspection Eye exam: Present: normal appearance, PERRL, EOMI, other (He does demonstrate some lid lag with closing her eyes this is residual from her previous facial nerve injury.). Absent: scleral icterus, conjunctival injection, periorbital swelling ENT exam: Present: normal exam, mucous membranes moist Neck exam: Present: normal inspection, full ROM, other (Discharge or bruits some mild discomfort to palpation over the posterior paraspinous musculature no spinous process tenderness.). Absent: tenderness, meningismus, lymphadenopathy Respiratory exam: Present: normal lung sounds bilaterally. Absent: respiratory distress, wheezes, rales, rhonchi, stridor Cardiovascular Exam: Present: regular rate, normal rhythm, normal heart sounds. Absent: systolic murmur, diastolic murmur, rubs, gallop, clicks GI/Abdominal exam: Present: soft, normal bowel sounds. Absent: distended, tenderness, guarding, rebound, rigid Extremities exam: Present: normal inspection, full ROM, normal capillary refill. Absent: tenderness, pedal edema, joint swelling, calf tenderness Back exam: Present: normal inspection, full ROM Neurological exam: Present: alert, oriented X3, CN II-XII intact. Absent: motor sensory deficit Psychiatric exam: Present: normal affect, normal mood Skin exam: Present: warm, dry, intact, normal color. Absent: rash Course Vital Signs 02/03/21 13:18 Temperature 97.8 F Pulse Rate 69 Respiratory 16 Rate Blood Pressure 147/83 O2 Sat by Pulse 98 Oximetry Medical Decision Making - Medical Decision Making Reevaluation patient finds she is asymptomatic. I did discuss [employer] her and her she'll be discharged the presentation is consistent with a likely musculoskeletal etiology of her headache. - Lab Data Result diagrams: 02/03/21 16:15 02/03/21 16:15 Lab Results 02/03/21 02/03/21 Range/Units 16:15 16:15 WBC 4.7 (3.8-10.6) k/uL RBC 4.22 (3.80-5.40) m/uL Hgb 14.3 (11.4-16.0) gm/dL Hct 40.5 (34.0-46.0) % MCV 96.0 (80.0-100.0) fL MCH 33.8 (25.0-35.0) pg MCHC 35.2 (31.0-37.0) g/dL RDW 12.9 (11.5-15.5) % Plt Count 268 (150-450) k/uL MPV 6.8 Neutrophils % 66 % Lymphocytes % 25 % Monocytes % 5 % Eosinophils % 1 % Basophils % 0 % Neutrophils # 3.1 (1.3-7.7) k/uL Lymphocytes # 1.2 (1.0-4.8) k/uL Monocytes # 0.3 (0-1.0) k/uL Eosinophils # 0.1 (0-0.7) k/uL Basophils # 0.0 (0-0.2) k/uL Sodium 139 (137-145) mmol/L Potassium 4.1 (3.5-5.1) mmol/L Chloride 106 (98-107) mmol/L Carbon Dioxide 25 (22-30) mmol/L Anion Gap 8 mmol/L BUN 16 (7-17) mg/dL Creatinine 0.73 (0.52-1.04) mg/dL Est GFR (CKD-EPI)AfAm >90 (>60 ml/min/1.73 sqM) Est GFR (CKD-EPI)NonAf 80 (>60 ml/min/1.73 sqM) Glucose 104 H (74-99) mg/dL Calcium 9.8 (8.4-10.2) mg/dL Magnesium 2.1 (1.6-2.3) mg/dL Total Bilirubin 0.5 (0.2-1.3) mg/dL AST 26 (14-36) U/L ALT 12 (4-34) U/L Alkaline Phosphatase 74 (38-126) U/L Creatine Kinase 55 (30-135) U/L Total Protein 7.3 (6.3-8.2) g/dL Albumin 4.5 (3.5-5.0) g/dL - Radiology Data Radiology results: report reviewed (Imaging reviewed no acute findings.), image reviewed Disposition Clinical Impression: Head pain cephalgia Disposition: HOME SELF-CARE Condition: Good Instructions (If sedation given, give patient instructions): Acute Headache (ED) Is patient prescribed a controlled substance at d/c from ED?: No Referrals: Estephania Ferguson MD [Primary Care Provider] - 1-2 days
[2021-02-03 16:42] LABS: Basophils % (A) 0 %; Eosinophils # (A) 0.1 k/uL (0-0.7); Eosinophils % (A) 1 %; HCT 40.5 % (34.0-46.0); HGB 14.3 gm/dL (11.4-16.0); Lymphocytes # (A) 1.2 k/uL (1.0-4.8); Lymphocytes % (A) 25 %; MCH 33.8 pg (25.0-35.0); MCHC 35.2 g/dL (31.0-37.0); Mean Platelet Volume 6.8; Monocytes # (A) 0.3 k/uL (0-1.0); Monocytes % (A) 5 %; Neutrophils # (A) 3.1 k/uL (1.3-7.7); Neutrophils % (A) 66 %; Platelet Count 268 k/uL (150-450); RBC 4.22 m/uL (3.80-5.40); RDW 12.9 % (11.5-15.5); WBC 4.7 k/uL (3.8-10.6)
[2021-02-03 16:53] LABS: ALT 12 U/L (4-34); AST 26 U/L (14-36); African American GFR (CKD) >90 (>60 ml/min/1.73 sqM); Albumin 4.5 g/dL (3.5-5.0); Alkaline Phosphatase 74 U/L (38-126); Anion Gap 8 mmol/L; Blood Urea Nitrogen 16 mg/dL (7-17); Calcium 9.8 mg/dL (8.4-10.2); Carbon Dioxide 25 mmol/L (22-30); Chloride 106 mmol/L (98-107); Creatine Kinase 55 U/L (30-135); Glucose 104 mg/dL (74-99); Magnesium 2.1 mg/dL (1.6-2.3); Non-African American GFR(CKD) 80 (>60 ml/min/1.73 sqM); Potassium 4.1 mmol/L (3.5-5.1); Sodium 139 mmol/L (137-145); Total Bilirubin 0.5 mg/dL (0.2-1.3); Total Protein 7.3 g/dL (6.3-8.2)
--- NOTE | 2021-02-03 17:20 | CT ---
EXAMINATION TYPE: CT brain wo con DATE OF EXAM: 02/03/2021 COMPARISON: 04/03/2014 HISTORY: Fall. Injury. CT DLP: mGycm Automated exposure control for dose reduction was used. There is mild cerebral atrophy. There is no mass effect nor midline shift. There is no sign of intrac ranial hemorrhage. The calvarium is intact. There is previous surgery on the left mastoid sinus. Skul l base is intact. IMPRESSION: Mild atrophy slightly increased compared to old exam. No acute intracranial abnormality.
[2021-02-03 18:18] VITALS: BP 141/77; PULSE 78; RESP 18
== END 2021-02-03 18:17 | disposition home or self-care (01) ==
LOC: EC 12:38
DX: R51.9 Headache, unspecified (principal); E78.5 Hyperlipidemia, unspecified; M19.90 Unspecified osteoarthritis, unspecified site; Z79.899 Other long term (current) drug therapy
CPT/HCPCS: 36415; 80053; 82550; 83735; 85025; 70450; 99284; 96374; 96375; 96361; J2765; J1885

== ENCOUNTER → 2022-02-05 | Outpatient (CLI) | payer MEDICARE ==
--- NOTE | 2022-02-06 10:44 | MM ---
Reason for exam: screening (asymptomatic). Last mammogram was performed 1 year and 1 month ago. History: Patient is postmenopausal. Family history of breast cancer in paternal cousin at age 64. Benign US biopsy breast VAD RT of the right breast, December 20, 2016. Ultrasound-guided core biopsy of the left breast, January 17, 2004. Benign stereotactic core biopsy of the right breast, November 13, 2001. Core biopsy of the right breast. Excisional biopsy of the left breast. Took estrogen for 7 years beginning at age 49. Physical Findings: A clinical breast exam by your physician is recommended on an annual basis and results should be correlated with mammographic findings. MG 3D Screening Mammo W/Cad Bilateral CC and MLO view(s) were taken. Prior study comparison: January 02, 2021, bilateral MG 3d screening mammo w/cad. December 18, 2019, bilateral MG 3d screening mammo w/cad. Finding: There is a typically benign 4 mm mass located 6 cm from the nipple in the 6 o'clock lower outer quadrant. Previous mammotome biopsy in the right breast. There is a chronic nodularity in the left breast. No significant changes in finding since January 02, 2021. ASSESSMENT: Incomplete: need additional imaging evaluation, BI-RAD 0 RECOMMENDATION: Special view mammogram of the right breast. If lesion persists on supplemental views, image directed ultrasound is recommended. [facility] will attempt to contact patient to return for supplemental views and ultrasound if indicated.
== END | disposition home or self-care (01) ==
LOC: RADMAMWWP 13:14
PROVIDERS: ATTEND Family Medicine
DX: Z12.31 Encounter for screening mammogram for malignant neoplasm of breast (principal)
CPT/HCPCS: 77063; 77067

== ENCOUNTER → 2022-08-10 | Outpatient (CLI) | payer MEDICARE ==
--- NOTE | 2022-08-10 10:25 | USB ---
Reason for Exam: Follow-up at short interval from prior study. Patient History: Menarche at age 10. First Full-Term at age 19. Postmenopausal. Estrogen for 7 years from age 49 until age 56. Core Biopsy on the Right side. Excisional Biopsy on the Left side. 12/20/2016, Benign Core Biopsy on the right side. 01/17/2004, Ultrasound-Guided Core Biopsy on the Left side. 11/13/2001, Benign Stereotactic Core Biopsy on the right side. Paternal cousin had breast cancer, age 64. Risk Values: Roxy 5 year model risk: 2.3%. NCI Lifetime model risk: 3.8%. Technique: Method: Targeted. Prior Study Comparison: 01/02/2021 Bilateral Screening Mammogram, [facility]. 02/05/2022 Bilateral Screening Mammogram, [facility]. 02/07/2022 Right Diagnostic Mammogram, [facility]. Findings: The axilla of the right breast and the retroareolar of the right breast were scanned. There is a 0.4 x 0.4 x 0.4 cm anechoic structure with through transmission at the 6:00 position 6 cm the nipple. This was present previously and appears stable. At the 7:00 position 6 cm from the nipple is an oval hypoechoic area measuring 0.6 x 0.4 cm present previously. Additional projections is may have some bilobed appearance but appears stable from comparison No new ultrasound abnormality evident.. Overall Assessment: Probably benign, BI-RAD 3 Management: Diagnostic Mammogram of the right breast in 6 months. Diagnostic Breast Ultrasound of the right breast in 6 months. A clinical breast exam by your physician is recommended on an annual basis and results should be correlated with mammographic findings. Electronically signed and approved by: Hugh Ely D.O. Radiologis
== END | disposition home or self-care (01) ==
LOC: RADUSWWP 09:38
PROVIDERS: ATTEND Family Medicine
DX: R92.8 Other abnormal and inconclusive findings on diagnostic imaging of breast (principal)

== ENCOUNTER → 2023-02-11 | Outpatient (CLI) | payer MEDICARE ==
--- NOTE | 2023-02-11 09:21 | MM ---
Reason for Exam: Follow-up at short interval from prior study. Last screening mammogram was performed 12 month(s) ago. Patient History: Menarche at age 10. First Full-Term at age 19. Postmenopausal. Estrogen for 7 years from age 49 until age 56. Core Biopsy on the Right side. Excisional Biopsy on the Left side. 12/20/2016, Benign Core Biopsy on the right side. 01/17/2004, Ultrasound-Guided Core Biopsy on the Left side. 11/13/2001, Benign Stereotactic Core Biopsy on the right side. Paternal cousin had breast cancer, age 64. Risk Values: Roxy 5 year model risk: 2.3%. NCI Lifetime model risk: 3.8%. Prior Study Comparison: 11/25/2015 Bilateral Screening Mammogram, [facility]. 11/29/2016 Bilateral Screening Mammogram, [facility]. 12/05/2016 Right Diagnostic Mammogram, [facility]. 12/05/2016 Right Diagnostic Ultrasound, [facility]. 12/20/2016 Right Diagnostic Mammogram, [facility]. 07/15/2017 Right Diagnostic Mammogram, [facility]. 11/29/2017 Bilateral Screening Mammogram, [facility]. 12/04/2017 Right Diagnostic Mammogram, [facility]. 06/10/2018 Right Diagnostic Mammogram, [facility]. 12/11/2018 Bilateral Screening Mammogram, [facility]. 12/18/2019 Bilateral Screening Mammogram, [facility]. 01/02/2021 Bilateral Screening Mammogram, [facility]. 02/05/2022 Bilateral Screening Mammogram, [facility]. 02/07/2022 Right Diagnostic Mammogram, [facility]. 02/07/2022 Right Diagnostic Ultrasound, [facility]. 08/10/2022 Right US breast limited RT, [facility]. Tissue Density: The breast tissue is heterogeneously dense. This may lower the sensitivity of mammography. Findings: Analyzed By CAD. Stable nodule 5 to 6:00 position right breast 6 cm from the nipple measuring approximately 4 mm. Postoperative distortion seen bilaterally. Scattered benign-appearing calcifications persists. Overall Assessment: Incomplete: need additional imaging evaluation, BI-RAD 0 Management: Diagnostic Breast Ultrasound of the right breast. A clinical breast exam by your physician is recommended on an annual basis and results should be correlated with mammographic findings. This exam should not preclude additional follow-up of suspicious palpable abnormalities. Results were given to the patient verbally at the time of exam. Electronically signed and approved by: Darwin Nguyễn M.D. Radiologis
--- NOTE | 2023-02-11 09:53 | USB ---
Reason for Exam: Follow-up at short interval from prior study. Patient History: Menarche at age 10. First Full-Term at age 19. Postmenopausal. Estrogen for 7 years from age 49 until age 56. Core Biopsy on the Right side. Excisional Biopsy on the Left side. 12/20/2016, Benign Core Biopsy on the right side. 01/17/2004, Ultrasound-Guided Core Biopsy on the Left side. 11/13/2001, Benign Stereotactic Core Biopsy on the right side. Paternal cousin had breast cancer, age 64. Risk Values: Roxy 5 year model risk: 2.3%. NCI Lifetime model risk: 3.8%. Technique: Method: Targeted. Prior Study Comparison: 01/02/2021 Bilateral Screening Mammogram, [facility]. 02/05/2022 Bilateral Screening Mammogram, [facility]. 02/07/2022 Right Diagnostic Mammogram, [facility]. Findings: The lower section of the breast of the right breast, the axilla of the right breast and the retroareolar of the right breast were scanned. Hypoechoic cystic lesions are redemonstrated with the 4 x 3 mm cyst at the right 6:00 position 6 cm from the nipple as well as a bilobed or septated cyst measuring 8 x 3 mm right 7:00 position 6 cm from the nipple. Overall appearance is stable relative to the prior study. Overall Assessment: Probably benign, BI-RAD 3 Management: Diagnostic Breast Ultrasound of the right breast in 6 months. A clinical breast exam by your physician is recommended on an annual basis and results should be correlated with mammographic findings. This exam should not preclude additional follow-up of suspicious palpable abnormalities. Results were given to the patient verbally at the time of exam. Electronically signed and approved by: Darwin Nguyễn M.D. Radiologis
== END | disposition home or self-care (01) ==
LOC: RADMAMWWP 08:50
PROVIDERS: ATTEND Family Medicine
DX: R92.8 Other abnormal and inconclusive findings on diagnostic imaging of breast (principal); Z78.0 Asymptomatic menopausal state; Z80.3 Family history of malignant neoplasm of breast
CPT/HCPCS: 77066; 76642; G0279; 77062

== ENCOUNTER → 2023-04-15 | Outpatient (CLI) | payer MEDICARE | END | disposition home or self-care (01) | LOC: LABPAT 13:29 | PROVIDERS: ATTEND Orthopaedic Surgery | DX: Z01.812 Encounter for preprocedural laboratory examination (principal); Z22.322 Carrier or suspected carrier of Methicillin resistant Staphylococcus aureus; M16.12 Unilateral primary osteoarthritis, left hip | CPT/HCPCS: 87070 ==

== ENCOUNTER 2023-04-23 08:26 | Day surgery (SDC) | payer MEDICARE ==
--- NOTE | 2023-04-22 09:13 | P.HPOR ---
History of Present Illness H&P Date: 04/22/23 Chief Complaint: Left hip pain The patient's an 78-year-old female presents with progressive left hip and thigh pain for the past several years worsening recently. She notes she's limping. She has pain with weightbearing activities. She notes it severely limits her. She takes medications with some relief. Review of Systems Negative except as in HPI Past Medical History Past Medical History: Hearing Disorder / Deafness, Hyperlipidemia, Memory Impairment, Osteoarthritis (OA), Skin Disorder, Thyroid Disorder Additional Past Medical History / Comment(s): LICHEN PLANUS OCC ON SKIN. VARICOSE VEIN. 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 early stages of Alzheimer's-takes tadalafil for History of Any Multi-Drug Resistant Organisms: None Reported Past Surgical History: Breast Surgery, Ear Surgery, Hernia Repair, Joint Replacement, Orthopedic Surgery Additional Past Surgical History / Comment(s): 09/13/15 Total L knee arthroplasty. Other SX: BREAST BIOPSIES. LT STAPEDECTOMY. Decompression of LT Facial Nerve. D&C 2012. Past Anesthesia/Blood Transfusion Reactions: No Reported Reaction Smoking Status: Former smoker - Past Family History Mother Brother(s) Family Medical History: Deep Vein Thrombosis (DVT) Father Brother(s) Family Medical History: Cancer Mother Family Medical History: Deep Vein Thrombosis (DVT) Additional Family Medical History / Comment(s): Mother at age 46yrs of post op blood clots. Father Family Medical History: Cancer, Coronary Artery Disease (CAD) Additional Family Medical History / Comment(s): Father of prostate cancer at age 72 yrs. Medications and Allergies Home Medications Medication Instructions Recorded Confirmed Type Simvastatin [Zocor] 40 mg PO HS 04/03/14 04/19/23 History Citalopram Hydrobromide [CeleXA] 10 mg PO DAILY 02/03/21 04/19/23 History Levothyroxine Sodium [Synthroid] 112 mcg PO DAILY 02/03/21 04/19/23 History cycloSPORINE [Restasis] 1 drop LEFT EYE BID 02/03/21 04/19/23 History Cholecalciferol [Vitamin D3 (25 25 mcg PO DAILY 04/19/23 04/19/23 History Mcg = 1000 Iu)] Diclofenac Sodium Gel [Voltaren 2 gm TOPICAL QID PRN 04/19/23 04/19/23 History Gel] Mv-Min/Folic/Vit K/Lut/Xhye090 1 each PO DAILY 04/19/23 04/19/23 History [Alive Women's 50 Plus Tablet] tadalafiL 2.5 mg PO HS 04/19/23 04/19/23 History Allergies Allergy/AdvReac Type Severity Reaction Status Date / Time Sulfa (Sulfonamide Allergy Rash/Hives Verified 04/19/23 14:23 Antibiotics) Physical Examination - Hip left Gait: antalgic Tenderness with palpation: anterior Pain with motion: internal rotation and hip flexion ROM: flexion: 90 degrees ROM: internal rotation: 0 degrees (With pain) ROM: external rotation: 50 degrees Crepitus with motion: Yes Strength: extension: 5/5 Strength: flexion: 5/5 Strength: abduction: 5/5 Tests: impingement tests: positive Results The patient is a well-developed well-nourished female proximal 5 foot 10, 170 pounds of mesomorphic habitus. HEENT exam is nonfocal, neck is supple. She has limited painful range of motion of the left hip. Clinically she has shortening of the left lower extremity compared to the right. Her distal neurovascular appears intact in the left lower extremity. - Diagnostic results Hip x-ray: image reviewed (2 views of the left hip obtained in the office show severe left hip osteoarthrosis with [id number] changes and subchondral sclerosis.) Assessment and Plan Assessment: Left hip severe osteoarthrosis Plan: I talked to the patient at length regarding her condition along with treatment options this point she's quite limited because of pain related to her left hip osteoarthrosis despite conservative measures. After a thorough discussion she opts to proceed with surgery. We will plan to proceed with left total hip arthroplasty utilizing an anterior approach. Risks and benefits were discussed at length in layman's terms. We'll institute DVT prophylaxis postoperatively.
[~2023-04-23 08:26] MED LIST changes: +ACETAMINOPHEN TAB 500 MG TAB PO PRN; -ALPRAZolam 0.25 MG TAB ONE; -BACITRACIN OINT 1 EACH PACKET TOPICAL ONE; +DEXAMETHASONE SOD PHOSPHATE 4 MG/ML 1 ML VIAL IV ONE; -LIDOCAINE 1% INJ 10MG/ML (20 ML MDV) ONE; +MELOXICAM 7.5 MG TAB PO PRN; +ONDANSETRON 4 MG/2 ML VIAL IVP ONE; -SODIUM BICARB 4% 5 ML VIAL (0.48 MEQ/ML) ONE; +TRANEXAMIC 1,000 MG/100ML-NACL 1,000 MG in SALINE 1 100ML.BAG IVPB PRN; +fentaNYL (PF) 50 MCG/ML 2 ML AMP IV PRN
[2023-04-23] MEDS: LACTATED RINGERS 1,000 ML IV SCH (09:00)
[2023-04-23] MEDS ORDERED: fentaNYL (PF) 50 MCG/ML 2 ML AMP IV ONE (09:17)
--- NOTE | 2023-04-23 09:29 | P.ANPRN ---
Procedure Note - Anesthesia - Nerve Block Performed Left Peter Single Time Out Performed: Yes Date of Procedure: 04/23/23 Procedure Start Time: Procedure Stop Time: Location of Patient: PreOp Indication: Acute Post-Operative Pain, Analgesia, Requested by Surgeon Sedation Type: Sedate with meaningful contact maintained Preparation: Sterile Prep Position: Supine Catheter: None Needle Types: Pajunk Needle Gauge: 21 Ultrasound used to visualize needle placement: Yes Ultrasound used to observe medication spread: Yes Injectate: 0.5% Ropivacaine (see comment for volume) (30cc + 4mg dexamethasone) Blood Aspirated: No Pain Paresthesia on Injection Noted: No Resistance on Injection: Normal Image Stored and Saved: Yes Events: Uneventful and Well Tolerated
[2023-04-23] MEDS ORDERED: ROPIVACAINE 5 MG/ML 30 ML VIAL ONE (09:54)
[2023-04-23] MEDS ORDERED: SUCCINYLCHOLINE CHLORIDE 200 MG/10 ML VIAL IV ONE (09:54)
[2023-04-23] MEDS ORDERED: KETOROLAC 15 MG/ML 1 ML VIAL ONE (09:54)
[2023-04-23] MEDS ORDERED: PROPOFOL 10 MG/ML 20 ML VIAL IV ONE (09:54)
[2023-04-23] MEDS ORDERED: ePHEDrine 50 MG/ML 1 ML VIAL ONE (09:54)
[2023-04-23] MEDS ORDERED: fentaNYL (PF) 50 MCG/ML 2 ML AMP ONE (09:54)
[2023-04-23] MEDS ORDERED: DEXAMETHASONE SOD PHOSPHATE 4 MG/ML 1 ML VIAL ONE (09:54)
[2023-04-23] MEDS ORDERED: TRANEXAMIC 1,000 MG/100ML-NACL PREMIX BAG ONE (09:54)
[2023-04-23] MEDS ORDERED: ceFAZolin 1,000 MG in SODIUM CHLORIDE 0.9% 1,000 ML IRRIGATION ONE (10:38)
[2023-04-23] MEDS ORDERED: LACTATED RINGERS 1,000 ML IV ONE ×2 (10:52→13:30)
[2023-04-23] MEDS ORDERED: HYDROcodone/APAP 5-325MG 1 EACH TAB PO PRN (12:10)
[2023-04-23] MEDS ORDERED: HYDROmorphone 0.5 MG/0.5 ML SYRINGE IVP PRN (12:10)
[2023-04-23] MEDS ORDERED: MAGNESIUM HYDROXIDE 2,400 MG/30 ML CUP PO PRN (12:10)
[2023-04-23] MEDS ORDERED: NALOXONE 0.4 MG/ML 1 ML VIAL IV PRN (12:10)
--- NOTE | 2023-04-23 12:26 | FL ---
EXAMINATION TYPE: FL guidance operating room, XR Hip Limited LT DATE OF EXAM: 04/23/2023 Comparison: None Clinical History: 78-year-old female TOTAL LT ANTERIOR HIP Findings: Intraoperative fluoroscopy during placement of left hip total arthroplasty. FLUOROSCOPY Fluoroscopy time of 35 seconds was used during anterior left hip replacement. 3 image/s document/s t he procedure. DOSE AREA PRODUCT (DAP) UGY*M,MGY*CM: 1.27 Impression: Intraoperative fluoroscopy as above.
--- NOTE | 2023-04-23 12:37 | P.OP ---
Date of Procedure: 04/23/23 Preoperative Diagnosis: Left hip severe osteoarthrosis Postoperative Diagnosis: Same Procedure(s) Performed: Left total hip arthroplastypress-fitanterior approach Implants: Depuy Corail size 13/125/collared press-fit femoral stem, 36+1.5 cobalt chrome femoral head, 58 mm [place] acetabular shell with neutral polyethylene liner. I did utilize a 6.5 x 25 mm cancellus screw. Anesthesia: MILTONA, spinal Surgeon: Mazin Benjamin Tripoler #1: Freddy Mendez Estimated Blood Loss (ml): 200 Pathology: none sent Condition: stable Disposition: PACU Indications for Procedure: The patient is an 78-year-old female who presents with progressive left hip pain secondary to osteoarthrosis despite conservative measures. A discussion of the risks and benefits of operative intervention versus continued conservative measures was made with patient. She opted to proceed with surgery. Operative risks to include infection, neurovascular injury, fracture, blood clots, leg length discrepancy, possible instability, possible component loosening/failure and need for subsequent procedures was discussed. Informed consent was obtained. Operative Findings: As below Description of Procedure: The patient was brought to the operating room, and after induction of spinal anesthesia was placed supine on the Berna table. Positioning was checked with fluoroscopy. The left hip was then prepped and draped in a normal fashion. A 12 cm incision was then made starting 2 fingerbreadths distal and 3 finger breaths posterior to the ASIS in line with the proximal femur. The skin was incised sharply. Subcutaneous tissues were divided sharply. Electrocautery was used for hemostasis. The fascia was split in line with skin incision. The interval between the sartorius and tensor fascia davis was then bluntly developed. The posterior fascia was opened with electrocautery. The lateral circumflex vessels were identified and cauterized prior to sectioning. A retractor was placed along the superior femoral neck as well as the anterior acetabular rim. A wide capsulotomy was performed. The neck cut was then made at a 45 angle to the shaft approximately 1 1/2 cm above the level of the lesser trochanter. The head was extracted. Attention was then paid towards preparing the acetabular. Anterior and posterior retractors were placed. The remaining capsular labral tissue sharply debrided clearly defining the acetabular margins. I began reaming with a 49 mm reamer taking care to initially medialize then reaming at 45 of abduction and 20 of anteversion. Sequential reaming is performed up to 57 mm. A trial D8 mm acetabular shell was inserted in the same orientation and was fully seated. There was good rim fit and stability. Positioning was checked with fluoroscopy. The final 58 mm acetabular shell was inserted again at 45 of abduction and 20 of anteversion. This was fully seated. There was good rim fit and stability. I did place a posterior superior 6.5 mm x 25 mm cancellus screw with good purchase. Again fluoroscopy was used to check the adequacy of placement. A neutral polyethylene liner was gently impacted. Care was taken to avoid any soft tissue interposition. Pulsatile lavage was utilized. Attention was then paid towards preparing the proximal femur. The central region was cleared of soft tissue. A canal finder was used to find the femoral canal. Sequential broaching was performed up to size 13 taking care to lateralize proximally. A calcar mill was used to fashion the medial calcar. There was good rotational stability. A 125 neck along with a 36 mm +1.5 head was placed. The hip was gently reduced. Fluoroscopy was used to check the adequacy of positioning along with leg lengths. I felt both were good. The hip was gently dislocated. The trial components were removed. The final size 13 collared 125 press-fit femoral stem was inserted parallel to the posterior cortex. This was fully seated and there was good rotational stability. A 36 mm 1.5 head was placed. This was gently impacted. The hip was then gently reduced. Final fluoroscopic view showed adequate placement implant along with rastafarian of leg length. Stability was checked with 80 of external rotation and 60 of extension of the right hip. The wound was irrigated with sterile lavage. The fascia was closed with running 0 Vicryl suture. There was minimal drainage therefore a deep drain was not placed. The second dose of IV TXA was given. The subcutaneous tissues were reapproximated interrupted 2-0 Vicryl sutures. The skin was reapproximated with 3-0 subcuticular strata fix suture. Skin tape and adhesive was applied. A sterile dressing was applied. The patient was then awoken from sedation and transferred to recovery room in good condition. Blood loss was estimated at 200 mL. No complications were incurred. Sponge and needle counts were correct at the end of the case. Freddy PEREZ assisted during the major components is case to include exposure, bone resection, implantation, and closure.
--- NOTE | 2023-04-23 13:04 | XR ---
EXAMINATION TYPE: XR Hip Limited LT DATE OF EXAM: 04/23/2023 Comparison: None Clinical History: 78-year-old female Status post hip surgery, assess surgical alignment Findings: Image shows placement of left total hip arthroplasty. Both acetabular cup and femoral stem components of the prosthesis are well seated without periprosthetic fracture. Alignment grossly anatomic. Soft tissue air related to recent operation. Impression: Uncomplicated postoperative appearance left hip total arthroplasty.
[2023-04-23] MEDS: HYDROmorphone 0.5 MG/0.5 ML SYRINGE IVP PRN ×2 (15:06→21:47)
[2023-04-23] MEDS ORDERED: SENNOSIDES-DOCUSATE SODIUM 1 EACH TAB PO SCH (21:00)
[2023-04-23] MEDS ORDERED: TADALAFIL 2.5 MG PO SCH (21:00)
[2023-04-23] MEDS ORDERED: ATORVASTATIN 20 MG TAB PO SCH (21:00)
[2023-04-23] MEDS: cycloSPORINE 0.05% OPHTH 0.4 ML DROPERETTE LEFT EYE SCH (21:42)
[2023-04-24] MEDS ORDERED: LEVOTHYROXINE 112 MCG TAB PO SCH (06:30)
[2023-04-24] MEDS: LACTATED RINGERS 1,000 ML IV SCH (06:48)
[2023-04-24] MEDS: HYDROcodone/APAP 7.5-325MG 1 EACH TAB PO PRN ×2 (06:48→13:22)
[2023-04-24 07:50] VITALS: BP 98/55; PULSE 65; RESP 16; TEMP 98.3
[2023-04-24] MEDS: cycloSPORINE 0.05% OPHTH 0.4 ML DROPERETTE LEFT EYE SCH (08:33)
[2023-04-24] MEDS ORDERED: CHOLECALCIFEROL 25 MCG (1000 IU) TABLET PO SCH (09:00)
[2023-04-24] MEDS ORDERED: CITALOPRAM HYDROBROMIDE 20 MG TAB PO SCH (09:00)
[2023-04-24] MEDS ORDERED: RIVAROXABAN 10 MG TAB PO SCH (09:00)
[2023-04-24] MEDS ORDERED: MULTIVITAMINS, THERA 1 EACH TAB PO SCH (09:00)
[2023-04-24 10:55] LABS: ALT 18 U/L (4-34); AST 33 U/L (14-36); African American GFR (CKD) 68 (>60 ml/min/1.73 sqM); Albumin/Globulin Ratio 1.4; Alkaline Phosphatase 48 U/L (38-126); Anion Gap 6 mmol/L; Blood Urea Nitrogen 25 mg/dL (7-17); Calcium 8.5 mg/dL (8.4-10.2); Carbon Dioxide 26 mmol/L (22-30); Chloride 104 mmol/L (98-107); Globulin 2.1 g/dL; Glucose 168 mg/dL (74-99); Non-African American GFR(CKD) 59 (>60 ml/min/1.73 sqM); Potassium 3.9 mmol/L (3.5-5.1); Sodium 136 mmol/L (137-145); Total Bilirubin 0.5 mg/dL (0.2-1.3); Total Protein 5.1 g/dL (6.3-8.2)
[2023-04-24 11:11] LABS: Basophils % (A) 0 %; Eosinophils % (A) 0 %; HCT 32.1 % (34.0-46.0); HGB 10.4 gm/dL (11.4-16.0); Hypochromasia Slight; Lymphocytes # (A) 1.2 k/uL (1.0-4.8); Lymphocytes % (A) 20 %; MCH 33.2 pg (25.0-35.0); MCHC 32.5 g/dL (31.0-37.0); MCV 102.1 fL (80.0-100.0); Macrocytosis Slight; Mean Platelet Volume 8.1; Monocytes # (A) 0.3 k/uL (0-1.0); Monocytes % (A) 5 %; Neutrophils # (A) 4.3 k/uL (1.3-7.7); Neutrophils % (A) 74 %; Platelet Count 205 k/uL (150-450); RBC 3.14 m/uL (3.80-5.40); RDW 13.2 % (11.5-15.5); WBC 5.8 k/uL (3.8-10.6)
--- NOTE | 2023-04-24 12:00 | P.CONS ---
History of Present Illness - Reason for Consult Consult date: 04/23/23 - History of Present Illness Rica Garcia, is a 78-year-old female patient of Dr. Ferguson who presented for an elective left hip arthroplasty with Dr. fang on 04/23/2023 patient has a past medical history of osteoarthritis, deafness, hyperlipidemia and thyroid disorder. Patient denies any significant cardiac history history of pulmonary embolism and DVT. Patient denies chest pain or shortness of breath. Patient denies nausea vomiting diarrhea. Patient denies any urinary burning or frequency. Vital signs temperature 98.3, heart rate 65, respiratory rate 16, blood pressure 98/55 pulse ox 96% on room. Patient currently on xarelto DVT prophylaxis per orthopedic services. Review of Systems Please refer to HPI otherwise unremarkable Past Medical History Past Medical History: Hearing Disorder / Deafness, Hyperlipidemia, Memory Impairment, Osteoarthritis (OA), Skin Disorder, Thyroid Disorder Additional Past Medical History / Comment(s): LICHEN PLANUS OCC ON SKIN. VARICOSE VEIN. 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 early stages of Alzheimer's-takes tadalafil for History of Any Multi-Drug Resistant Organisms: None Reported Past Surgical History: Breast Surgery, Ear Surgery, Hernia Repair, Joint Replacement, Orthopedic Surgery Additional Past Surgical History / Comment(s): 09/13/15 Total L knee arthroplasty. Other SX: BREAST BIOPSIES. LT STAPEDECTOMY. Decompression of LT Facial Nerve. D&C 2012. Past Anesthesia/Blood Transfusion Reactions: No Reported Reaction Smoking Status: Former smoker - Past Family History Mother Brother(s) Family Medical History: Deep Vein Thrombosis (DVT) Father Brother(s) Family Medical History: Cancer Mother Family Medical History: Deep Vein Thrombosis (DVT) Additional Family Medical History / Comment(s): Mother at age 46yrs of post op blood clots. Father Family Medical History: Cancer, Coronary Artery Disease (CAD) Additional Family Medical History / Comment(s): Father of prostate cancer at age 72 yrs. Medications and Allergies Home Medications Medication Instructions Recorded Confirmed Type Simvastatin [Zocor] 40 mg PO HS 04/03/14 04/19/23 History Citalopram Hydrobromide [CeleXA] 20 mg PO DAILY 02/03/21 04/23/23 History Levothyroxine Sodium [Synthroid] 112 mcg PO DAILY 02/03/21 04/19/23 History cycloSPORINE [Restasis] 1 drop LEFT EYE BID 02/03/21 04/19/23 History Cholecalciferol [Vitamin D3 (25 25 mcg PO DAILY 04/19/23 04/19/23 History Mcg = 1000 Iu)] Diclofenac Sodium Gel [Voltaren 2 gm TOPICAL QID PRN 04/19/23 04/19/23 History Gel] Mv-Min/Folic/Vit K/Lut/[id number] 1 each PO DAILY 04/19/23 04/19/23 History [Alive Women's 50 Plus Tablet] tadalafiL 2.5 mg PO HS 04/19/23 04/19/23 History B12/Methyltetrahydrofolate/B6 1 each PO DAILY 04/23/23 04/23/23 History [Methyl B-12 and Folate Chew Tb] Allergies Allergy/AdvReac Type Severity Reaction Status Date / Time Sulfa (Sulfonamide Allergy Rash/Hives Verified 04/19/23 14:23 Antibiotics) Physical Exam Vitals: Vital Signs Temp Pulse Pulse Resp BP Pulse Ox 04/23/23 13:17 55 L 16 133/66 99 04/23/23 13:02 51 L 16 108/59 100 04/23/23 12:47 49 L 16 110/59 98 04/23/23 12:32 97.0 F L 55 L 16 116/58 100 04/23/23 09:24 53 L 16 150/70 100 04/23/23 09:00 97.0 F L 51 L 16 147/68 100 Intake and Output 04/22/23 04/23/23 04/23/23 22:59 06:59 14:59 Intake Total 1851 Output Total 200 Balance 1651 Intake: IV 1851 Output: Estimated Blood Loss 200 Other: Weight 70.7 kg Head normocephalic Neck supple Lungs clear to auscultation bilaterally no wheezing or crackles Heart regular rate and rhythm S1-S2, no rub or gallop Abdomen is soft nontender nondistended positive bowel sounds no hepatosplenomegaly Extremities no edema. Left hip dressing clean Neuro alert and orientated to 3 Results CBC & Chem 7: 04/24/23 09:47 04/24/23 09:47 Assessment and Plan Assessment: 1. Status post left hip arthroplasty with Dr. Hooker. 2. History of hyperlipidemia 3. History of thyroid disorder 4. History of deafness 5. History of memory impairment DVT prophylaxis of xeralto per orthopedic services Thank you for this consultation we'll continue to follow patient closely throughout stay Time with Patient: Greater than 30 (Greater than 60% of the total time spent in counseling and coordination of care)
--- NOTE | 2023-04-24 12:03 | P.PN ---
Subjective Progress Note Date: 04/24/23 Rica Garcia, is a 78-year-old female patient of Dr. Ferguson who presented for an elective left hip arthroplasty with Dr. fang on 04/23/2023 patient has a past medical history of osteoarthritis, deafness, hyperlipidemia and thyroid disorder. Patient denies any significant cardiac history history of pulmonary embolism and DVT. Patient denies chest pain or shortness of breath. Patient denies nausea vomiting diarrhea. Patient denies any urinary burning or frequency. Vital signs temperature 98.3, heart rate 65, respiratory rate 16, blood pressure 98/55 pulse ox 96% on room. Patient currently on xarelto DVT prophylaxis per orthopedic services. On 04/24/2023 patient is currently postop day 1. At this time patient denies chest pain or shortness of breath. Patient denies nausea vomiting or diarrhea. Patient denies any urinary burning or frequency. lab work reviewed and unremarkable. Incentive spirometer and encouraged anticipate possible discharge in the next 24-48 hours Objective - Vital Signs Vital signs: Vital Signs Temp 98.3 F 04/24/23 07:49 Pulse 65 04/24/23 07:49 Resp 16 04/24/23 07:49 BP 98/55 04/24/23 07:49 Pulse Ox 92 L 04/24/23 07:49 FiO2 Intake & Output 04/23/23 04/24/23 04/24/23 18:59 06:59 18:59 Intake Total 2101 Output Total 200 Balance 1901 Weight 70.7 kg Intake: IV 2100 Output: Estimated Blood Loss 200 - Exam Head normocephalic Neck supple Lungs clear to auscultation bilaterally no wheezing or crackles Heart regular rate and rhythm S1-S2, no rub or gallop Abdomen is soft nontender nondistended positive bowel sounds no hepatosplenomegaly Extremities no edema. Left hip dressing clean Neuro alert and orientated to 3 - Labs CBC & Chem 7: 04/24/23 09:47 04/24/23 09:47 Labs: Abnormal Lab Results - Last 24 Hours (Table) 04/24/23 04/24/23 Range/Units 09:47 09:47 RBC 3.14 L (3.80-5.40) m/uL Hgb 10.4 L (11.4-16.0) gm/dL Hct 32.1 L (34.0-46.0) % MCV 102.1 H (80.0-100.0) fL Sodium 136 L (137-145) mmol/L BUN 25 H (7-17) mg/dL Glucose 168 H (74-99) mg/dL Total Protein 5.1 L (6.3-8.2) g/dL Albumin 3.0 L (3.5-5.0) g/dL Assessment and Plan Assessment: 1. Status post left hip arthroplasty with Dr. Hooker. 2. History of hyperlipidemia 3. History of thyroid disorder 4. History of deafness 5. History of memory impairment DVT prophylaxis of xeralto per orthopedic services Thank you for this consultation we'll continue to follow patient closely throughout stay
--- NOTE | 2023-04-24 13:53 | P.DS ---
Providers Date of admission: 04/23/2023 Expected date of discharge: 04/24/23 Attending physician: Mazin Benjamin Consults: 04/23/23 12:13 Consult Physician Routine Consulting Provider: Isai Gale Consult Reason/Comments: Medical Management s/p ;eft total hip arthroplasty Do you want consulting provider notified?: Yes Primary care physician: Estephania Ferguson Hospital Course: Date of admission: 04/23/2023 Date of discharge: 04/24/2023 Admission diagnosis: Left hip osteoarthritis Discharge diagnosis: Same Attending physician: Dr. Benjamin Surgical procedures: Left total hip arthroplasty Brief history: Patient is a 78-year-old female with a history of progressive primary left hip osteoarthritis. At this point patient has failed conservative treatment measures and has opted to proceed with a elective left total hip arthroplasty. Hospital course: Details of patient's surgery can be found in operative report. Patient tolerated the procedure well and was subsequently transported to orthopedic floor. Patient's orthopeidc and medical care was provided daily. Patient had daily laboratory tests performed for evaluation of overall blood counts. Patient had daily physical therapy to include strengthening range of motion as well as education with walker ambulation. Patient was treated with Xarelto for their postoperative DVT prophylaxis during their inpatient stay. Patient was noted to have a relatively uneventful postoperative course. Patient reported satisfactory pain control with oral pain medications by postoperative day 1. Patient showed satisfactory progress with physical therapy. Patient moved steadily through the program and had no difficulty meeting the goals by postoperative day 1. Given patient's otherwise satisfactory course and having met physical therapy goals, plan is to discharge patient home with health services on postoperative day 1. Discharge condition/disposition: Patient will be discharged home with health services in stable condition. Discharge medications: Instructions are given on resumption of patient's normal daily medications per primary care recommendation, in addition patient will be prescribed [place]; eliquis 2.5 mg BID x 2 weeks Discharge instructions: 1. Wound care and infection precautions, keep incision dry and covered while showering, no lotions, creams, moisturizers. No soaking, tubs, pools, hottubs. Do not scrub over the incision. 2. Weight-bear as tolerated with walker / cane until follow-up. 3. Ice and elevate when necessary. Do not exceed 20 minutes per hour with ice pack. 4. Utilize compression sleeve until seen at first follow up appointment. 5. Visiting nursing care. 6. Home physical therapy. 7. Pain meds and anticoagulants per prescription. 8. Pain medication has potential to cause constipation. Increase oral fluid and fiber intake. Contact primary care provider if you have not had a bowel movement within 48 hours after discharge 9. No anti-inflammatory medication until discussed at first post operative visit, this including Motrin, Aleve, Mobic, Diclofenac. 10. Follow up in office at 2 weeks postop with Eleazar Case PA-C / Freddy Mendez PA-C 11. Follow up with your primary care doctor 7-10 days after discharge. 12. Contact [facility] with any questions, . Assessment: Left hip osteoarthritis Procedures: Left total hip arthroplasty Patient Condition at Discharge: Good Plan - Discharge Summary Discharge Rx Participant: Yes New Discharge Prescriptions: No Action Simvastatin [Zocor] 40 mg PO HS cycloSPORINE [Restasis] 1 drop LEFT EYE BID Levothyroxine Sodium [Synthroid] 112 mcg PO DAILY Citalopram Hydrobromide [CeleXA] 20 mg PO DAILY tadalafiL 2.5 mg PO HS Diclofenac Sodium Gel [Voltaren Gel] 2 gm TOPICAL QID PRN PRN Reason: Pain Cholecalciferol [Vitamin D3 (25 Mcg = 1000 Iu)] 25 mcg PO DAILY Mv-Min/Folic/Vit K/Lut/Gcgj223 [Alive Women's 50 Plus Tablet] 1 each PO DAILY B12/Methyltetrahydrofolate/B6 [Methyl B-12 and Folate Chew Tb] 1 each PO DAILY Discharge Medication List Simvastatin [Zocor] 40 mg PO HS 04/03/14 [History] Citalopram Hydrobromide [CeleXA] 20 mg PO DAILY 02/03/21 [History] Levothyroxine Sodium [Synthroid] 112 mcg PO DAILY 02/03/21 [History] cycloSPORINE [Restasis] 1 drop LEFT EYE BID 02/03/21 [History] Cholecalciferol [Vitamin D3 (25 Mcg = 1000 Iu)] 25 mcg PO DAILY 04/19/23 [History] Diclofenac Sodium Gel [Voltaren Gel] 2 gm TOPICAL QID PRN 04/19/23 [History] Mv-Min/Folic/Vit K/Lut/Ngfw441 [Alive Women's 50 Plus Tablet] 1 each PO DAILY 04/19/23 [History] tadalafiL 2.5 mg PO HS 04/19/23 [History] B12/Methyltetrahydrofolate/B6 [Methyl B-12 and Folate Chew Tb] 1 each PO DAILY 04/23/23 [History] Follow up Appointment(s)/Referral(s): [facility], [NON-STAFF] - As Needed Freddy Mendez, PAC [PHYSICIAN MAINTENANCE WELDER] - 2 Weeks Patient Instructions/Handouts: Anterior Hip Replacement (DC) Activity/Diet/Wound Care/Special Instructions: Orthopedic Discharge Instructions: 1. Wound care and infection precautions, keep incision dry and covered while showering, no lotions, creams, moisturizers. No soaking, pools, hot tubs. Do not scrub over incision. 2. Weight-bear as tolerated with walker / cane until follow-up. 3. Ice and elevate when necessary. Do not exceed 20 minutes per hour with ice pack. 4. Utilize compression sleeve until seen at first follow up appointment. 5. Pain meds and anticoagulants per prescription. 6. Pain medication has potential to cause constipation. Increase oral fluid and fiber intake. Contact primary care provider if you have not had a bowel movement within 48 hours after discharge. 7. No anti-inflammatory medication until discussed at first post operative visit, this including Motrin, Aleve, Mobic, Diclofenac. 8. Follow up in office at 2 weeks postop with Eleazar Case PA-C / Freddy Mendez PA-C 9. Follow up with your primary care doctor 7-10 days after discharge. 10. Contact [facility] with any questions, . Keep incision clean, dry, intact. While showering, cover fusion tape with Saran wrap. Keep fusion tape on until follow-up appointment in office in 2 weeks Discharge Disposition: HOME WITH HOME HEALTH SERVICES
--- NOTE | 2023-04-24 13:55 | P.PN ---
Subjective Progress Note Date: 04/24/23 Principal diagnosis: Left hip osteoarthritis Patient was seen at bedside this afternoon with present with present during encounter. Patient was eating lunch. Bulky dressing was present over the left hip. Patient is working with physical therapy and walk around the room and up-and-down steps in the hallway. Patient says she is looking forward to going home today. Patient says she has urinated since surgery performed yesterday. Patient says she has not had bowel movement yet, however, patient says she has been passing gas. Patient says she does have a walker for home. Patient denies chest pain, fever, shortness of breath, nausea, vomiting, change in vision,/bladder control. Objective - Vital Signs Vital signs: Vital Signs Temp 98.3 F 04/24/23 07:49 Pulse 65 04/24/23 07:49 Resp 16 04/24/23 07:49 BP 98/55 04/24/23 07:49 Pulse Ox 92 L 04/24/23 07:49 FiO2 Intake & Output 04/23/23 04/24/23 04/24/23 18:59 06:59 18:59 Intake Total 2100 Output Total 200 Balance 1900 Weight 70.7 kg Intake: IV 2100 Output: Estimated Blood Loss 200 - Exam Left hip: Incision is clean, dry, and intact. The bulky dressing is in good condition. There is minimal soft tissue swelling and ecchymosis surrounding the medial and lateral aspects of the incision. Calf is soft, no tenderness with palpation. Plantar flexion, dorsiflexion, EHL, FHL are intact. Sensory exam to light touch throughout the extremity is intact, dorsal pedis pulses 2+. - Labs CBC & Chem 7: 04/24/23 09:47 04/24/23 09:47 Assessment and Plan Assessment: 1. Left hip osteoarthritis - Postoperative day 1 status post left total hip arthroplasty Plan: 1. Left hip osteoarthritis - left total hip arthroplasty performed yesterday, 04/23/2023. Patient stable at bedside this afternoon. Patient did do well physical therapy. Patient does have a walker for home. Pain medication as needed. Discharge home today with health services. 2. Appreciate medical management 3. Pain management -[place] 4. DVT prophylaxis - Xarelto in hospital. Going home with Eliquis 2.5 mg twice a day 5. GI prophylaxis - senna 6. PT/OT - weightbearing as tolerated with walker 7. Encourage incentive spirometer use 8. discharge planning - discharge home today with health services. Time with Patient: Less than 30
== END 2023-04-24 16:12 | disposition home health service (06) ==
LOC: OR 08:26 → 4SSUR 12:30 → OR 04-24 16:12
PROVIDERS: ATTEND Orthopaedic Surgery
DX: M16.12 Unilateral primary osteoarthritis, left hip (principal); G89.18 Other acute postprocedural pain; E03.9 Hypothyroidism, unspecified; E78.5 Hyperlipidemia, unspecified; H91.93 Unspecified hearing loss, bilateral; G30.9 Alzheimer's disease, unspecified; Z87.891 Personal history of nicotine dependence; I83.90 Asymptomatic varicose veins of unspecified lower extremity; R41.3 Other amnesia; Z96.652 Presence of left artificial knee joint; Z79.890 Hormone replacement therapy; Z79.1 Long term (current) use of non-steroidal anti-inflammatories (NSAID); Z79.899 Other long term (current) drug therapy; Z88.2 Allergy status to sulfonamides
CPT/HCPCS: 27130; 97161; 64447; 86900; 86901; 80053; 85025; 86850; 73501; C1776; J1100; J0690 ×2; J2405; J3010; J1170

== ENCOUNTER → 2023-08-14 | Outpatient (CLI) | payer MEDICARE ==
--- NOTE | 2023-08-14 14:56 | USB ---
Reason for Exam: Follow-up at short interval from prior study. Patient History: Menarche at age 10. First Full-Term at age 19. Postmenopausal. Estrogen for 7 years from age 49 until age 56. Core Biopsy on the Right side. Excisional Biopsy on the Left side. 12/20/2016, Benign Core Biopsy on the right side. 01/17/2004, Ultrasound-Guided Core Biopsy on the Left side. 11/13/2001, Benign Stereotactic Core Biopsy on the right side. Paternal cousin had breast cancer, age 64. Risk Values: Roxy 5 year model risk: 2.2%. NCI Lifetime model risk: 3.4%. Technique: Method: Targeted. Prior Study Comparison: 02/05/2022 Bilateral Screening Mammogram, [facility]. 02/07/2022 Right Diagnostic Mammogram, [facility]. 02/11/2023 Bilateral MG 3D diag mammo w/cad [place], [facility]. Findings: The lower outer quadrant of the right breast, the axilla of the right breast and the retroareolar of the right breast were scanned. Complex partially cystic partially solid appearing lesion at the right 7:00 position 6 cm from the nipple measuring 8 x 6 x 4 mm. Tissue diagnosis is recommended. Stable cyst at the right 6:00 position measured 4 x 3 mm.. Overall Assessment: Suspicious, BI-RAD 4 Management: Ultrasound Core Biopsy of the right breast. A clinical breast exam by your physician is recommended on an annual basis and results should be correlated with mammographic findings. This exam should not preclude additional follow-up of suspicious palpable abnormalities. Results were given to the patient verbally at the time of exam. Electronically signed and approved by: Darwin Nguyễn M.D. Radiologis
== END | disposition home or self-care (01) ==
LOC: RADUSWWP 14:12
PROVIDERS: ATTEND Family Medicine
DX: R92.8 Other abnormal and inconclusive findings on diagnostic imaging of breast (principal); Z78.0 Asymptomatic menopausal state; Z80.3 Family history of malignant neoplasm of breast

== ENCOUNTER → 2023-08-26 | Day surgery (SDC) | payer MEDICARE ==
--- NOTE | 2023-08-26 14:45 | MM ---
Reason for Exam: Post Procedure Mammogram. Last screening mammogram was performed 6 month(s) ago. Patient History: Menarche at age 10. First Full-Term at age 19. Postmenopausal. Estrogen for 7 years from age 49 until age 56. Core Biopsy on the Right side. Excisional Biopsy on the Left side. 12/20/2016, Benign Core Biopsy on the right side. 01/17/2004, Ultrasound-Guided Core Biopsy on the Left side. 11/13/2001, Benign Stereotactic Core Biopsy on the right side. Paternal cousin had breast cancer, age 64. Risk Values: Roxy 5 year model risk: 2.2%. NCI Lifetime model risk: 3.4%. Prior Study Comparison: 02/05/2022 Bilateral Screening Mammogram, [facility]. 02/07/2022 Right Diagnostic Mammogram, [facility]. 02/11/2023 Bilateral MG 3D diag mammo w/cad [place], [facility]. Tissue Density: Right: The breast tissue is heterogeneously dense. This may lower the sensitivity of mammography. Overall Assessment: Post procedure mammogram for marker placement Management: Post Mammogram for [place] Placement of the right breast. Electronically signed and approved by: Angel Ji DO
--- NOTE | 2023-08-29 11:30 | USB ---
Risk Values: Roxy 5 year model risk: 2.2%. NCI Lifetime model risk: 3.4%. Prior Study Comparison: 02/05/2022 Bilateral Screening Mammogram, [facility]. 02/07/2022 Right Diagnostic Mammogram, [facility]. 02/11/2023 Bilateral MG 3D diag mammo w/cad [place], [facility]. Pathology Description: Location: 7 o'clock. Needle Type: Mammotome Cores: 4 Skin Nicks: 1 The procedure of ultrasound guided core biopsy was explained to the patient. Benefits, alternatives, and risks were discussed. An informed consent was then obtained. The patient was placed in supine positioning for imaging and for the procedure. The overlying skin was prepped and draped in usual sterile fashion. Lidocaine buffered with bicarbonate was used as anesthetic into the skin and subcutaneous tissue up to area of concern in the right breast. A sheri was made with surgical scalpel. Under ultrasound guidance, a 12-gauge vacuum assisted biopsy gun device was used to obtain 4 core samples. Following this, a biopsy clip ([place] sebas) was left in lesion. The patient tolerated the procedure well without any immediate complication. The patient was kept in the radiology department for short stay after the procedure and then discharged home in stable condition. Postprocedure mammogram: The patient was transferred to mammography for physician ordered post procedure mammogram for clip placement verification. Impression: Successful, uncomplicated ultrasound guided core biopsy of area of concern in the right breast, full pathology results to follow. Pathology Results: Result: Benign, Fibrocystic change. RIGHT BREAST, 7:00, NEEDLE CORE BIOPSY: Fibrocystic changes including cysts, fibrosis, apocrine metaplasia, and columnar cell change. Overall Assessment: Benign Management: Diagnostic Mammogram of the right breast in 6 months. Electronically signed and approved by: Angel Ji DO
== END ==
LOC: RADUSWWP 12:38
PROVIDERS: ATTEND Surgery
DX: N60.81 Other benign mammary dysplasias of right breast (principal); Z80.3 Family history of malignant neoplasm of breast; Z78.0 Asymptomatic menopausal state
CPT/HCPCS: 88305; 77065; 19083; A4648

== ENCOUNTER → 2023-09-05 | Outpatient (CLI) | payer MEDICARE ==
--- NOTE | 2023-09-05 10:10 | P.GSHP ---
History of Present Illness H&P Date: 09/05/23 Chief Complaint: Abnormal right breast mammogram Rica is an 78-year-old white female seen in consultation for Dr. Ferguson regarding an ultrasound-guided core biopsy of the right breast. The patient underwent a bilateral mammogram on 4423. This was felt to be incomplete BIRAD 0 and additional right breast ultrasound and bilateral diagnostic mammograms [place]. [place] [address]. Stable nodule in the 6 o'clock position of the right breast was identified and postoperative distortion was seen bilaterally. A diagnostic breast ultrasound of the right was recommended[place] [id number] and it was felt to be probably benign BIRADS 3 diagnostic breast ultrasound of the right breast in 6 months was recommended. The patient had a repeat ultrasound performed on [id number]. This was considered suspicious BIRADS 4 and ultrasound-guided core biopsy was recommended. This was performed on [id number]. The ultrasound core biopsy revealed fibrocystic changes including cysts, fibrosis, apocrine metaplasia, and columnar cell change. The post biopsy mammogram was reviewed with Dr. Ji. On this mammogram there were noted to be increased microcalcifications in the anterior upper breast and stereotactic core biopsy wa s recommended. The core biopsy and ultrasound were felt to be concordant. She has had multiple lateral needle biopsies of the breast which were benign. She has never had an open biopsy of the breast. It is not complaining of any lumps masses or nodules of concern in either breast. She has not had any recent trauma or infection in the breast. She is not complaining of any nipple discharge or skin changes. Caffeine: chi tea daily nicotine: none; 50 years ago stopped chocolate: weekly BCP: none hormones: none Family History: none Hormonal History: menarche: 11 , breat fed: yes, age at first : 19 menopause: 48 Surgical history: hernia repair left side left knee left hip Medical history: dementia hypothyroid Social history: Nicotine: Negative Alcohol: three times a week drugs: none - Constitutional Constitutional: Denies chills, Denies fever - EENT Eyes: denies blurred vision, denies pain Ears: bilateral: decreased hearing, deny: tinnitus Ears, nose, mouth and throat: Denies headache, Denies sore throat - Breasts Breasts: bilateral: as per HPI - Cardiovascular Cardiovascular: Denies chest pain, Denies shortness of breath - Respiratory Respiratory: Denies cough, Denies 7 - Gastrointestinal Gastrointestinal: Denies abdominal pain, Denies diarrhea, Denies nausea, Denies vomiting - Genitourinary (Female) Genitourinary: Denies dysuria, Denies hematuria - Menstruation Menstruation: Reports postmenopausal - Musculoskeletal Musculoskeletal: Denies myalgias - Integumentary Integumentary: Denies pruritus, Denies rash - Neurological Neurological: Denies numbness, Denies weakness - Psychiatric Comment: dementia Psychiatric: Reports depression, Denies anxiety - Endocrine Endocrine: Denies fatigue, Denies weight change - Hematologic/Lymphatic Comment: none - Allergic/Immunologic Allergic/Immunologic: Reports as per HPI Past Medical History Past Medical History: Hearing Disorder / Deafness, Hyperlipidemia, Osteoarthritis (OA), Skin Disorder, Thyroid Disorder Additional Past Medical History / Comment(s): Other HX: LICHEN PLANUS OCC ON SKIN. VARICOSE VEIN. 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 dementia dx 2022 History of Any Multi-Drug Resistant Organisms: None Reported Past Surgical History: Breast Surgery, Ear Surgery, Joint Replacement, Orthopedic Surgery Additional Past Surgical History / Comment(s): 09/13/15 Total L knee arthroplasty. Other SX: BREAST BIOPSIES. LT STAPEDECTOMY. Decompression of LT Facial Nerve. D&C 2012. left hip replacement Past Anesthesia/Blood Transfusion Reactions: No Reported Reaction Past Psychological History: Depression Additional Psychological History / Comment(s): NO CURRENT PROB. Pt resides with her spouse. She is independent. Smoking Status: Former smoker Past Alcohol Use History: Occasional Additional Past Alcohol Use History / Comment(s): Pt started smoking in 1968 and quit in 1974 Past Drug Use History: None Reported - Past Family History Mother Brother(s) Family Medical History: Deep Vein Thrombosis (DVT) Father Brother(s) Family Medical History: Cancer Mother Family Medical History: Deep Vein Thrombosis (DVT) Additional Family Medical History / Comment(s): Mother at age 46yrs of post op blood clots. Father Family Medical History: Cancer, Coronary Artery Disease (CAD) Additional Family Medical History / Comment(s): Father of prostate cancer a t age 72 yrs. Medications and Allergies Home Medications Medication Instructions Recorded Confirmed Type Simvastatin [Zocor] 40 mg PO HS 04/03/14 09/05/23 History Citalopram Hydrobromide [CeleXA] 20 mg PO DAILY 02/03/21 09/05/23 History Levothyroxine Sodium [Synthroid] 112 mcg PO DAILY 02/03/21 09/05/23 History cycloSPORINE [Restasis] 1 drop LEFT EYE BID 02/03/21 09/05/23 History Cholecalciferol [Vitamin D3 (25 25 mcg PO DAILY 04/19/23 09/05/23 History Mcg = 1000 Iu)] Diclofenac Sodium Gel [Voltaren 2 gm TOPICAL QID PRN 04/19/23 09/05/23 History Gel] Mv-Min/Folic/Vit K/Lut/Ntlr301 1 each PO DAILY 04/19/23 09/05/23 History [Alive Women's 50 Plus Tablet] tadalafiL 2.5 mg PO HS 04/19/23 09/05/23 History B12/Methyltetrahydrofolate/B6 1 each PO DAILY 04/23/23 09/05/23 History [Methyl B-12 and Folate Chew Tb] Donepezil HCl [Aricept ODT] 10 mg PO DAILY 08/19/23 09/05/23 History Allergies Allergy/AdvReac Type Severity Reaction Status Date / Time Sulfa (Sulfonamide Allergy Rash/Hives Verified 09/05/23 09:41 Antibiotics) Surgical - Exam - General no distress - Eyes normal ocular movement - ENT bilatearl hearing aids - Neck trachea midline - Respiratory normal respiratory effort, clear to auscultation - Cardiovascular Heart Sounds: normal: S1, S2 - Abdomen Abdomen: soft, non tender, no guarding, no rigid, no rebound - Integumentary normal turgor - Neurologic no disoriented, no combative - Musculoskeletal normal gait - Psychiatric oriented to time, oriented to person, oriented to place, speech is normal, memory intact Breast Exam: BRA: 34G Inspection: Bilateral grade 3 ptosis Palpation: Right breast: Ecchymosis lower outer aspect no evidence of infection or hematoma, no dominant masses or nodules of concern of multiple positional exam Right axilla: No adenopathy of concern Left breast: No dominant masses or nodules of concern Left axilla: No adenopathy of concern Results Mammogram/ultrasound/post ultrasound biopsy mammogram reviewed with Dr. Ji As per Dr. Ji increasing microcalcifications are noted in the right breast and stereotactic core biopsy has been recommended on the mammogram from [id number] Assessment and Plan Assessment: Impression: Fibrocystic breast changes Abnormal right breast mammogram Dementia Plan: Stereotactic core biopsy right breast Risk and benefits of the procedure discussed with the patient and her . Risks include but are not limited to bleeding, infection, reaction to the anesthetic. They understand and wish to proceed. This will be scheduled in the near future CC: Dr. Ferguson
== END ==
LOC: WWCWWP 09:16
PROVIDERS: ATTEND Surgery
DX: R92.8 Other abnormal and inconclusive findings on diagnostic imaging of breast (principal); N60.11 Diffuse cystic mastopathy of right breast; N60.12 Diffuse cystic mastopathy of left breast; F03.90 Unspecified dementia, unspecified severity, without behavioral disturbance, psychotic disturbance, mood disturbance, and anxiety; E03.9 Hypothyroidism, unspecified; E78.5 Hyperlipidemia, unspecified; M19.90 Unspecified osteoarthritis, unspecified site; N63.15 Unspecified lump in the right breast, overlapping quadrants; Z79.890 Hormone replacement therapy; Z87.891 Personal history of nicotine dependence; Z88.2 Allergy status to sulfonamides

== ENCOUNTER → 2023-09-12 | Day surgery (SDC) | payer MEDICARE ==
--- NOTE | 2023-09-12 08:50 | P.PCN ---
Date of Procedure: 09/12/23 Preoperative Diagnosis: Calcifications of concern right breast/anterior upper outer quadrant Postoperative Diagnosis: Same Procedure(s) Performed: Right breast stereotactic core biopsy Anesthesia: local Surgeon: Kari Stephen Pathology: other (Breast tissue with microcalcifications noted in specimen radiograph) Condition: stable Disposition: same day Indications for Procedure: Microcalcifications of concern right breast Operative Findings: Radiographic of specimen reveals microcalcifications of concern Description of Procedure: The patient is an 78-year-old white female who was noted to have microcalcifications of concern in the right breast in the upper outer region anteriorly. This was reviewed with Dr. Mims from radiology. Stereotactic core biopsy was recommended. She was positioned in a stereotactic upright chair. A lateral to medial approach was utilized. A crawler dragline operator film was obtained. The lesion of concern was identified. The lesion was targeted. The breast was prepped using chlorhexidine. 20 mL of 1% lidocaine were used to anesthetize the area of concern. A 9-gauge vacuum-assisted core rotating biopsy needle was driven to the correct coordinates. A prefire film was obtained. The needle was noted to be in the correct location. The needle was fired. Post fire film was obtained and the needle was noted to be in the correct location. 18 core biopsy specimens were obtained. Radiograph of the specimen revealed microcalcifications. A suture marked topically a clip was placed. The clip was noted to be in the correct location. The patient tolerated the procedure in stable condition. The specimen was sent to pathology. The patient will follow up with Dr. Fabian next week.
== END ==
LOC: RADMAMWWP 07:27
PROVIDERS: ATTEND Surgery
DX: N60.91 Unspecified benign mammary dysplasia of right breast (principal)
CPT/HCPCS: 88305; 19081; A4648

== ENCOUNTER → 2023-09-18 | Outpatient (CLI) | payer MEDICARE ==
[2023-09-18 13:49] VITALS: BP 145/84; PULSE 50; RESP 17; TEMP 97.8
--- NOTE | 2023-09-18 14:03 | P.PN ---
Subjective Progress Note Date: 09/18/23 Principal diagnosis: atypical lobular hyperplasia Rica is an 78 year old white female status post right breast stereotactic core biopsy on . Pathology revealed focal atypical lobular hyperplasia. She tolerated the procedure without difficulty. Objective - Vital Signs Vital signs: Vital Signs Temp 97.8 F 09/18/23 13:39 Pulse 50 L 09/18/23 13:39 Resp 17 09/18/23 13:39 BP 145/84 09/18/23 13:39 Pulse Ox 98 09/18/23 13:39 FiO2 Intake & Output 09/17/23 09/18/23 09/18/23 18:59 06:59 18:59 Weight 77.111 kg - Constitutional General appearance: Present: cooperative - EENT Eyes: Present: EOMI - Neck Neck: Present: normal ROM - Respiratory Respiratory: bilateral: CTA - Cardiovascular Heart sounds: normal: S1, S2 - Integumentary Integumentary Comment(s): Biopsy site ecchymosis, no infection no hematoma - Musculoskeletal Musculoskeletal: Present: gait normal - Psychiatric Psychiatric: Present: A&O x's 3, appropriate affect, intact judgment & insight Assessment and Plan Assessment: Impression: Atypical lobular hyperplasia stereotactic core biopsy right breast Early dementia Plan: At this time we have discussed chemoprevention and the patient and her have declined Close surveillance Repeat bilateral mammogram in February with exam at that time CC: Dr. Ferguson
== END ==
LOC: WWCWWP 12:43
PROVIDERS: ATTEND Surgery
DX: F03.90 Unspecified dementia, unspecified severity, without behavioral disturbance, psychotic disturbance, mood disturbance, and anxiety (principal); N60.91 Unspecified benign mammary dysplasia of right breast; N85.00 Endometrial hyperplasia, unspecified; Z88.2 Allergy status to sulfonamides; Z13.21 Encounter for screening for nutritional disorder

== ENCOUNTER → 2024-01-27 | Outpatient (CLI) | payer MEDICARE ==
[2024-01-27 18:50] LABS: Basophils # (A) 0.02 X 10*3/uL (0.00-0.10); Basophils % (A) 0.5 %; Eosinophils # (A) 0.12 X 10*3/uL (0.04-0.35); Eosinophils % (A) 3.1 %; HCT 41.1 % (37.2-46.3); HGB 13.3 g/dL (12.0-15.0); Immature Grans, Automated 0 %; Lymphocytes # (A) 1.35 X 10*3/uL (0.90-5.00); Lymphocytes % (A) 34.5 %; MCH 31.8 pg (27.0-32.0); MCHC 32.4 g/dL (32.0-37.0); MCV 98.3 FL (80.0-97.0); Mean Platelet Volume 10.1 FL (9.5-12.2); Monocytes # (A) 0.37 X 10*3/uL (0.20-1.00); Monocytes % (A) 9.5 %; NRBC Per 100 WBC 0 X 10*3/uL (0.00-0.01); Neutrophils # (A) 2.05 X 10*3/uL (1.80-7.70); Neutrophils % (A) 52.4 %; Platelet Count 247 X 10*3/uL (140-440); RBC 4.18 X 10*6/uL (4.10-5.20); RDW 13.3 % (11.5-14.5); WBC 3.91 X 10*3/uL (4.50-10.00)
[2024-01-27 22:08] LABS: BUN/Creat Ratio 25.14 Ratio (12.00-20.00); Blood Urea Nitrogen 17.6 mg/dL (9.0-27.0); Calcium 9.8 mg/dL (8.7-10.3); Carbon Dioxide 25.2 mmol/L (21.6-31.8); Chloride 106 mmol/L (96-109); Glucose 92 mg/dL (70-110); Potassium 4.5 mmol/L (3.5-5.5); Sodium 141 mmol/L (135-145)
== END | disposition home or self-care (01) ==
LOC: LABPAT 13:36
PROVIDERS: ATTEND Orthopaedic Surgery Hand Surgery
DX: Z01.812 Encounter for preprocedural laboratory examination (principal); S62.617A Displaced fracture of proximal phalanx of left little finger, initial encounter for closed fracture; S62.615A Displaced fracture of proximal phalanx of left ring finger, initial encounter for closed fracture; X58.XXXA Exposure to other specified factors, initial encounter
CPT/HCPCS: 36415; 80048; 85025

== ENCOUNTER 2024-01-30 07:40 | Day surgery (SDC) | payer MEDICARE ==
--- NOTE | 2024-01-28 13:02 | P.HPOR ---
History of Present Illness H&P Date: 01/28/24 Subjective: This is a 78 year old female that presents today for initial evaluation regarding a left hand injury that occurred on 01/23/2024 when she was walking her dog and fell onto an outstretched hand. She was seen in urgent care where x-rays were taken. She was placed in a splint that she has been in since her injury. She is right-hand dominant. She lives independently with her . She does not use any assistive devices for ambulation. Physical Examination: LUE: AIN/PIN/Radial/Ulnar/Median motor intact. Radial/Ulnar/Median SILT. 2+/4 Radial/Ulnar pulses palpated. 5/5 APB, 5/5 FDI. Bruising/swelling present of small and ring fingers with visual hyperextension deformity present. No signs of open wounds or fracture. Unable to make a fist. Imaging: X-Rays of the left hand 3V taken in office today demonstrate a left small finger proximal phalanx base fracture with approximately 50 of dorsal angulation. There is also a left ring finger proximal phalanx base fracture with approximately 45 of dorsal inclination. Impression: 1.) Left small finger proximal phalanx base fracture, displaced. 2.) Left ring finger proximal phalanx base fracture, displaced. Plan: Diagnosis and treatment options were discussed with the patient. both nonoperative and operative treatment options were discussed. Due to her higher level of independence for 78 years of age and the fact that she still lives a relatively active lifestyle, she elects to proceed with left small and ring finger proximal phalanx base fractures closed vs. open reduction and pinning. Risks and benefits of surgery including bleeding, infection, damage to surrounding tissue, need for further surgery, residual numbness were discussed and the patient wished to go forward with surgery. The patient was agreeable with this plan. CC: Dr. Phyllis Pandey DO Orthopedic Hand/Upper Extremity Surgeon Past Medical History Past Medical History: Hearing Disorder / Deafness, Hyperlipidemia, Osteoarthritis (OA), Skin Disorder, Thyroid Disorder Additional Past Medical History / Comment(s): Other HX: LICHEN PLANUS OCC ON SKIN. VARICOSE VEIN. 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 dementia dx 2022 History of Any Multi-Drug Resistant Organisms: None Reported Past Surgical History: Breast Surgery, Ear Surgery, Joint Replacement, Orthopedic Surgery Additional Past Surgical History / Comment(s): 09/13/15 Total L knee arthroplasty. Other SX: BREAST BIOPSIES. LT STAPEDECTOMY. Decompression of LT Facial Nerve. D&C 2012. left hip replacement Past Anesthesia/Blood Transfusion Reactions: No Reported Reaction Past Psychological History: Depression Additional Psychological History / Comment(s): NO CURRENT PROB. Pt resides with her spouse. She is independent. Smoking Status: Former smoker Past Alcohol Use History: Occasional Additional Past Alcohol Use History / Comment(s): Pt started smoking in 1968 and quit in 1974 Past Drug Use History: None Reported - Past Family History Mother Brother(s) Family Medical History: Deep Vein Thrombosis (DVT) Father Brother(s) Family Medical History: Cancer Mother Family Medical History: Deep Vein Thrombosis (DVT) Additional Family Medical History / Comment(s): Mother at age 46yrs of post op blood clots. Father Family Medical History: Cancer, Coronary Artery Disease (CAD) Additional Family Medical History / Comment(s): Father of prostate cancer at age 72 yrs. Medications and Allergies Home Medications Medication Instructions Recorded Confirmed Type Simvastatin [Zocor] 40 mg PO HS 04/03/14 09/18/23 History Citalopram Hydrobromide [CeleXA] 20 mg PO DAILY 02/03/21 09/18/23 History Levothyroxine Sodium [Synthroid] 112 mcg PO DAILY 02/03/21 09/18/23 History cycloSPORINE [Restasis] 1 drop LEFT EYE BID 02/03/21 09/18/23 History Cholecalciferol [Vitamin D3 (25 25 mcg PO DAILY 04/19/23 09/18/23 History Mcg = 1000 Iu)] Diclofenac Sodium Gel [Voltaren 2 gm TOPICAL QID PRN 04/19/23 09/18/23 History Gel] Mv-Min/Folic/Vit K/Lut/[id number] 1 each PO DAILY 04/19/23 09/18/23 History [Alive Women's 50 Plus Tablet] tadalafiL 2.5 mg PO HS 04/19/23 09/18/23 History B12/Methyltetrahydrofolate/B6 1 each PO DAILY 04/23/23 09/18/23 History [Methyl B-12 and Folate Chew Tb] Donepezil HCl [Aricept ODT] 10 mg PO DAILY 08/19/23 09/18/23 History Allergies Allergy/AdvReac Type Severity Reaction Status Date / Time Sulfa (Sulfonamide Allergy Rash/Hives Verified 09/18/23 13:36 Antibiotics) Physical Examination Osteopathic Statement: *. No significant issues noted on an osteopathic structural exam other than those noted in the History and Physical/Consult.
[2024-01-29 09:42] VITALS: BMI 24.3
[~2024-01-30 07:40] MED LIST changes: -ACETAMINOPHEN TAB 500 MG TAB PO PRN; -DEXAMETHASONE SOD PHOSPHATE 4 MG/ML 1 ML VIAL IV ONE; +DEXAMETHASONE SOD PHOSPHATE 4 MG/ML 1 ML VIAL ONE; +KETAMINE HCL IN 0.9 % NACL 50 MG/5 ML SYRINGE ONE; -MELOXICAM 7.5 MG TAB PO PRN; -ONDANSETRON 4 MG/2 ML VIAL IVP ONE; +PROPOFOL 10 MG/ML 20 ML VIAL IV ONE; +ROPIVACAINE 5 MG/ML 30 ML VIAL ONE; -TRANEXAMIC 1,000 MG/100ML-NACL 1,000 MG in SALINE 1 100ML.BAG IVPB PRN; -fentaNYL (PF) 50 MCG/ML 2 ML AMP IV PRN; +fentaNYL (PF) 50 MCG/ML 2 ML AMP ONE
[2024-01-30] MEDS ORDERED: HYDROmorphone 0.5 MG/0.5 ML SYRINGE IVP PRN (07:48)
[2024-01-30] MEDS: LACTATED RINGERS 1,000 ML IV SCH (08:22)
[2024-01-30 08:41] VITALS: TEMP 97
[2024-01-30] MEDS: DEXAMETHASONE SOD PHOSPHATE 4 MG/ML 1 ML VIAL IV ONE (08:55)
[2024-01-30] MEDS: ONDANSETRON 4 MG/2 ML VIAL IVP ONE (08:55)
--- NOTE | 2024-01-30 09:13 | P.ANPRN ---
Procedure Note - Anesthesia - Nerve Block Performed Left Supraclavicular Single Time Out Performed: Yes Date of Procedure: 01/30/24 Procedure Start Time: : Procedure Stop Time: 09:05 Location of Patient: PreOp Indication: Acute Post-Operative Pain, Analgesia, Requested by Surgeon Sedation Type: Awake Preparation: Sterile Prep Position: Sitting Needle Types: Pajunk Needle Gauge: 21 Ultrasound used to visualize needle placement: Yes Ultrasound used to observe medication spread: Yes Injectate: 0.5% Ropivacaine (see comment for volume) (Ropiv 20ml+decadron 4mg) Blood Aspirated: No Pain Paresthesia on Injection Noted: No Resistance on Injection: Normal Image Stored and Saved: Yes Events: Uneventful and Well Tolerated
[2024-01-30] MEDS: BUPIVACAINE (PF) 0.5% 30 ML VIAL SQ ONE (09:37)
--- NOTE | 2024-01-30 10:59 | P.OP ---
Date of Procedure: 01/30/24 Preoperative Diagnosis: 1.) Left small finger proximal phalanx base fracture, displaced. 2.) Left ring finger proximal phalanx base fracture, displaced. Postoperative Diagnosis: 1.) Left small finger proximal phalanx base fracture, displaced. 2.) Left ring finger proximal phalanx base fracture, displaced. Procedure(s) Performed: 1.) Left small finger proximal phalanx base fracture closed reduction percutaneous pinning. 2.) Left ring finger proximal phalanx base fracture closed reduction percutaneous pinning. Implants: 0.045 K-wires 4 Anesthesia: regional Surgeon: Johann Pandey Estimated Blood Loss (ml): 0 Pathology: none sent Condition: stable Disposition: PACU Description of Procedure: This is a 78 year old female who presents today for closed reduction and pinning of her displaced left small and ring finger proximal phalanx base fracture. Ri sks and benefits of surgery were discussed with the patient including bleeding, damage to surrounding tissue, infection, need for further surgery as well as risks of anesthesia including pulmonary embolism and even and the patient wished to proceed with surgical intervention. The patient was seen in the pre- operative area by myself. Consent and H&P were completed and updated. The correct extremity was marked in the pre-operative area by myself and all other questions were answered. Operative Narrative: The patient was brought to the operating room by the department of anesthesia. They remained on the portable stretcher and a rolling hand table was brought to the side of the operative extremity. Pre-operative time out was performed indicating the correct patient, procedure and laterality. All in the room agreed. Pre-operative antibiotics were given prior to skin incision. The patient was then drifted off to sleep by the department of anesthesia. A nons terile tourniquet was then applied to the operative extremity and the left upper extremity was then prepped and draped in normal sterile fashion. The operative extremity was the exsanguinated with an esmarch bandage and the tourniquet was inflated to 250mmHg. Closure reduction maneuver was performed of the left small finger and adequate reduction was confirmed on mini C-arm. A 0.045 K wire was then inserted in an antegrade fashion across the fracture site and advanced into the distal cortex of the proximal phalanx. This was repeated on the radial base, resulting a cross pin configuration. The pin edges were cut. Attention was then drawn to the left ring finger. Similar reduction maneuver was performed. Adequate reduction was confirmed on mini C-arm. 0.045 K wire was then inserted in antegrade fashion across the fracture site and advanced into the distal cortex of the proximal phalanx. This was repeated on the radial base, resulting in a cross pin configuration. [place] of digits was then examined and was found to be restored. Pin ends were cut and pin caps were placed. An ulnar gutter splint was applied. Tourniquet was let down and the hand had immediate perfusion. The patient was then woken by the department of anesthesia and transferred to PACU in stable condition. Johann Pandey D.O. Orthopedic Hand/Upper Extremity Surgeon
[2024-01-30 11:11] VITALS: BP 138/68; PULSE 55; RESP 20
== END 2024-01-30 11:02 | disposition home or self-care (01) ==
LOC: OR 07:40
PROVIDERS: ATTEND Orthopaedic Surgery Hand Surgery
DX: S62.615A Displaced fracture of proximal phalanx of left ring finger, initial encounter for closed fracture (principal); S62.617A Displaced fracture of proximal phalanx of left little finger, initial encounter for closed fracture; G89.18 Other acute postprocedural pain; E03.9 Hypothyroidism, unspecified; E78.5 Hyperlipidemia, unspecified; F03.90 Unspecified dementia, unspecified severity, without behavioral disturbance, psychotic disturbance, mood disturbance, and anxiety; Z87.891 Personal history of nicotine dependence; Z79.890 Hormone replacement therapy; Z79.899 Other long term (current) drug therapy; W18.30XA Fall on same level, unspecified, initial encounter; Y93.K1 Activity, walking an animal; Z88.2 Allergy status to sulfonamides
CPT/HCPCS: 64415; 26727 ×2; J1100; J0690; J2405; J3010; J2795; J2704; J0665

== ENCOUNTER → 2024-02-10 | Outpatient (CLI) | payer MEDICARE ==
--- NOTE | 2024-02-10 15:14 | MM ---
Reason for Exam: Follow-up at short interval from prior study. Last screening mammogram was performed 12 month(s) ago. Patient History: Menarche at age 10. First Full-Term at age 19. Postmenopausal. Previous Atypical Lobular Hyperplasia at age 78. Estrogen for 7 years from age 49 until age 56. 09/12/2023, High risk MG stereo VAD BX RT on the right side. 08/26/2023, Benign US biopsy breast VAD RT on the right side. Core Biopsy on the Right side. Excisional Biopsy on the Left side. 12/20/2016, Benign Core Biopsy on the right side. 01/17/2004, Ultrasound-Guided Core Biopsy on the Left side. 11/13/2001, Benign Stereotactic Core Biopsy on the right side. Paternal cousin had breast cancer, age 64. Risk Values: Roxy 5 year model risk: 4.3%. NCI Lifetime model risk: 6.5%. Tissue Density: The breasts are extremely dense, which lowers the sensitivity of mammography. Findings: Analyzed By CAD. Stable benign calcifications bilaterally. Postbiopsy changes noted. No new mass or distortion. Overall Assessment: Benign, BI-RAD 2 Management: Screening Mammogram of both breasts in 1 year. . Results were given to the patient verbally at the time of exam. Patient should continue monthly self-breast exams. A clinical breast exam by your physician is recommended on an annual basis. This exam should not preclude additional follow-up of suspicious palpable abnormalities. Note on Roxy scores and lifetime risk: 1. A Roxy score greater than 3% is considered moderate risk. If this is the case, consider specialist referral to assess eligibility for a risk reducing agent. 2. If overall lifetime risk for the development of breast cancer is 20% or higher, the patient may qualify for future screening with alternating mammogram and breast MRI. Electronically signed and approved by: Darwin Nguyễn M.D. Radiologis
== END | disposition home or self-care (01) ==
LOC: RADMAMWWP 14:10
PROVIDERS: ATTEND Surgery
DX: R92.343 Mammographic extreme density, bilateral breasts (principal); R92.1 Mammographic calcification found on diagnostic imaging of breast; Z80.3 Family history of malignant neoplasm of breast; Z78.0 Asymptomatic menopausal state
CPT/HCPCS: 77066; G0279; 77062

== ENCOUNTER → 2024-02-13 | Outpatient (CLI) | payer MEDICARE ==
--- NOTE | 2024-02-13 09:58 | P.PN ---
Subjective Progress Note Date: 02/13/24 Principal diagnosis: ALH 09/05/23 Chief Complaint: Abnormal right breast mammogram Rica is an 78-year-old white female seen in consultation for Dr. Fergusno regarding an ultrasound-guided core biopsy of the right breast. The patient underwent a bilateral mammogram on 4423. This was felt to be incomplete BIRAD 0 and additional right breast ultrasound and bilateral diagnostic mammograms [place]. [place] [address]. Stable nodule in the 6 o'clock position of the right breast was identified and postoperative distortion was seen bilaterally. A diagnostic breast ultrasound of the right was recommended[place] [id number] and it was felt to be probably benign BIRADS 3 diagnostic breast ultrasound of the right breast in 6 months was recommended. The patient had a repeat ultrasound performed on 178170. This was considered suspicious BIRADS 4 and ultrasound-guided core biopsy was recommended. This was performed on [id number]. The ultrasound core biopsy revealed fibrocystic changes including cysts, fibrosis, apocrine metaplasia, and columnar cell change. The post biopsy mammogram was reviewed with Dr. Ji. On this mammogram there were noted to be increased microcalcifications in the anterior upper breast and stereotactic core biopsy was recommended. The core biopsy and ultrasound were felt to be concordant. She has had multiple bilateral needle biopsies of the breast which were benign. She has never had an open biopsy of the breast. She had a stero biopssy of hte right breast on 09-12-23. This showed ALH. She was offered chemoprevention and declined. Bilateral mammogram on 02-10-24 BIRAD 2, personally reviewed. Patient recently fell fracturing 2 bones in her left hand requiring surgery approximately 2 weeks ago. She is doing well at this time. She is not complaining of any new lumps masses or nodules of concern in either breast. She has not had any recent trauma or infection in the breast. She is not complaining of any nipple discharge or skin changes. Isael Risk: 5 year: 4.3% lifetime: 6.5% Caffeine: chi tea daily nicotine: none; 50 years ago stopped chocolate: weekly BCP: none hormones: none Family History: none Hormonal History: menarche: 11 , breat fed: yes, age at first : 19 menopause: 48 Surgical history: hernia repair left side left knee left hip fracture two bones in the left hand/ surgery Medical history: dementia hypothyroid Social history: Nicotine: Negative Alcohol: three times a week drugs: none - Constitutional Constitutional: Denies chills, Denies fever - EENT Eyes: denies blurred vision, denies pain Ears: bilateral: decreased hearing, deny: tinnitus Ears, nose, mouth and throat: Denies headache, Denies sore throat - Breasts Breasts: bilateral: as per HPI - Cardiovascular Cardiovascular: Denies chest pain, Denies shortness of breath - Respiratory Respiratory: Denies cough - Gastrointestinal Gastrointestinal: Denies abdominal pain, Denies diarrhea, Denies nausea, Denies vomiting - Genitourinary (Female) Genitourinary: Denies dysuria, Denies hematuria - Menstruation Menstruation: Reports postmenopausal - Musculoskeletal Musculoskeletal: Denies myalgias - Integumentary Integumentary: Denies pruritus, Denies rash - Neurological Neurological: Denies numbness, Denies weakness - Psychiatric Comment: dementia Psychiatric: Reports depression, Denies anxiety - Endocrine Endocrine: Denies fatigue, Denies weight change - Hematologic/Lymphatic Comment: none - Allergic/Immunologic Allergic/Immunologic: Reports as per HPI Past Medical History Past Medical History: Hearing Disorder / Deafness, Hyperlipidemia, Osteoarthritis (OA), Skin Disorder, Thyroid Disorder Additional Past Medical History / Comment(s): Other HX: LICHEN PLANUS OCC ON SKIN. VARICOSE VEIN. 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 dementia dx 2022 History of Any Multi-Drug Resistant Organisms: None Reported Past Surgical History: Breast Surgery, Ear Surgery, Joint Replacement, Orthopedic Surgery Additional Past Surgical History / Comment(s): 09/13/15 Total L knee arthroplasty. Other SX: BREAST BIOPSIES. LT STAPEDECTOMY. Decompression of LT Facial Nerve. D&C 2012. left hip replacement Past Anesthesia/Blood Transfusion Reactions: No Reported Reaction Past Psychological History: Depression Additional Psychological History / Comment(s): NO CURRENT PROB. Pt resides with her spouse. She is independent. Smoking Status: Former smoker Past Alcohol Use History: Occasional Additional Past Alcohol Use History / Comment(s): Pt started smoking in 1968 and quit in 1974 Past Drug Use History: None Reported - Past Family History Mother Brother(s) Family Medical History: Deep Vein Thrombosis (DVT) Father Brother(s) Family Medical History: Cancer Mother Family Medical History: Deep Vein Thrombosis (DVT) Additional Family Medical History / Comment(s): Mother at age 46yrs of post op blood clots. Father Family Medical History: Cancer, Coronary Artery Disease (CAD) Additional Family Medical History / Comment(s): Father of prostate cancer at age 72 yrs. Medications and Allergies Home Medications Medication Instructions Recorded Confirmed Type Simvastatin [Zocor] 40 mg PO HS 04/03/14 09/05/23 History Citalopram Hydrobromide [CeleXA] 20 mg PO DAILY 02/03/21 09/05/23 History Levothyroxine Sodium [Synthroid] 112 mcg PO DAILY 02/03/21 09/05/23 History cycloSPORINE [Restasis] 1 drop LEFT EYE BID 02/03/21 09/05/23 History Cholecalciferol [Vitamin D3 (25 25 mcg PO DAILY 04/19/23 09/05/23 History Mcg = 1000 Iu)] Diclofenac Sodium Gel [Voltaren 2 gm TOPICAL QID PRN 04/19/23 09/05/23 History Gel] Mv-Min/Folic/Vit K/Lut/[id number] 1 each PO DAILY 04/19/23 09/05/23 History [Alive Women's 50 Plus Tablet] tadalafiL 2.5 mg PO HS 04/19/23 09/05/23 History B12/Methyltetrahydrofolate/B6 1 each PO DAILY 04/23/23 09/05/23 History [Methyl B-12 and Folate Chew Tb] Donepezil HCl [Aricept ODT] 10 mg PO DAILY 08/19/23 09/05/23 History Allergies Allergy/AdvReac Type Severity Reaction Status Date / Time Sulfa (Sulfonamide Allergy Rash/Hives Verified 09/05/23 09:41 Antibiotics) Objective - Vital Signs Vital signs: Intake & Output 02/12/24 02/13/24 02/13/24 18:59 06:59 18:59 Weight 77.111 kg - Constitutional General appearance: Present: cooperative - EENT Eyes: Present: EOMI ENT: Present: hearing grossly normal - Neck Neck: Present: normal ROM - Respiratory Respiratory: bilateral: CTA - Cardiovascular Heart sounds: normal: S1, S2 - Integumentary Integumentary: Present: normal turgor - Musculoskeletal Musculoskeletal: Present: gait normal - Psychiatric Psychiatric: Present: A&O x's 3, appropriate affect, intact judgment & insight - Additional findings Additional findings: Breast Exam: BRA: 34G Inspection: Bilateral grade 3 ptosis Palpation: Right breast: no dominant masses or nodules of concern of multiple positional exam, right breast larger than left breast Right axilla: No adenopathy of concern Left breast: No dominant masses or nodules of concern Left axilla: No adenopathy of concern Assessment and Plan Assessment: Impression: Fibrocystic breast changes bilateral mammogram 02-10-24 BIRAD 2 Dementia Plan: bilateral mammogram in 1 year with examination at that time We have again discussed chemoprophylaxis which they have declined and at this time the patient is going to be watched conservatively CC: Dr. Ferguson
[2024-02-13 10:10] VITALS: BP 123/80; PULSE 59; RESP 16; TEMP 98
== END ==
LOC: WWCWWP 08:53
PROVIDERS: ATTEND Surgery
DX: R92.8 Other abnormal and inconclusive findings on diagnostic imaging of breast (principal); R92.1 Mammographic calcification found on diagnostic imaging of breast; N60.11 Diffuse cystic mastopathy of right breast; N60.12 Diffuse cystic mastopathy of left breast; N60.02 Solitary cyst of left breast; N60.01 Solitary cyst of right breast; F03.90 Unspecified dementia, unspecified severity, without behavioral disturbance, psychotic disturbance, mood disturbance, and anxiety; N63.15 Unspecified lump in the right breast, overlapping quadrants; Z87.891 Personal history of nicotine dependence; Z88.2 Allergy status to sulfonamides

== ENCOUNTER → 2024-08-04 | Outpatient (CLI) | payer MEDICARE ==
--- NOTE | 2024-08-04 11:01 | US ---
EXAMINATION TYPE: US arterial LE single level DATE OF EXAM: 08/04/2024 9:02 AM CLINICAL INDICATION: Female, 79 years old with history of I79.3 PAD; no symptoms per patient History of: Smoker: previous 50 year ago Hypertension: n Diabetic: n Hyperlipidemia: n TIA/CVA: n Previous Vascular Surgery: n CAD: n VA: n Vascular Ulcers: n Claudication: n Gangrene: n Doppler Waveforms: Right: Multiphasic Left: Multiphasic Right Brachial Pressure: 145 Left Brachial Pressure: 133 Ankle-Brachial Indices: Right: 1.1 Left: 1.3 (Vessel hardening > 1.4; Normal 0.9 - 1.4, Moderate 0.7 - 0.9, Severe 0.5-0.7) IMPRESSION: Normal bilateral BASILIO [facility], Workstation: [id number], 08/04/2024 10:59 AM
== END | disposition home or self-care (01) ==
LOC: RADUSWWP 08:37
PROVIDERS: ATTEND Family Medicine
CPT/HCPCS: 93922

== ENCOUNTER → 2025-02-10 | Outpatient (CLI) | payer MEDICARE ==
--- NOTE | 2025-02-10 13:29 | MM ---
Reason for Exam: Screening (asymptomatic). Last screening mammogram was performed 12 month(s) ago. Patient History: Menarche at age 10. First Full-Term at age 19. Postmenopausal. Previous Atypical Lobular Hyperplasia at age 78. Estrogen for 7 years from age 49 until age 56. 09/12/2023, High risk MG stereo VAD BX RT on the right side. 08/26/2023, Benign US biopsy breast VAD RT on the right side. Core Biopsy on the Right side. Excisional Biopsy on the Left side. 12/20/2016, Benign Core Biopsy on the right side. 01/17/2004, Ultrasound-Guided Core Biopsy on the Left side. 11/13/2001, Benign Stereotactic Core Biopsy on the right side. Paternal cousin had breast cancer, age 64. Risk Values: Roxy 5 year model risk: 4.2%. NCI Lifetime model risk: 6.0%. Prior Study Comparison: 02/11/2023 Bilateral MG 3D diag mammo w/cad [facility], [facility]. 08/26/2023 Right MG diagnostic mammo RT wo CAD, [facility]. 02/10/2024 Bilateral MG 3D diag mammo w/cad [facility], [facility]. Tissue Density: The breasts are heterogeneously dense, which may obscure small masses. Findings: Analyzed By CAD. Redemonstrated excisional scar lateral left breast. Areas of asymmetric density unchanged. Scattered benign punctate calcifications are unchanged. Redemonstrated 3 microclips right breast from prior biopsies. There is no suspicious group of microcalcifications or new suspicious mass in either breast. Overall Assessment: Benign, BI-RAD 2 Management: Screening Mammogram of both breasts in 1 year. See note below in regards to the patient's increased 5 year Roxy score. Patient should continue monthly self-breast exams. A clinical breast exam by your physician is recommended on an annual basis. This exam should not preclude additional follow-up of suspicious palpable abnormalities. Note on Roxy scores and lifetime risk: 1. A Roxy score greater than 3% is considered moderate risk. If this is the case, consider specialist referral to assess eligibility for a risk reducing agent. 2. If overall lifetime risk for the development of breast cancer is 20% or higher, the patient may qualify for future screening with alternating mammogram and breast MRI. [facility], , 02/10/2025 1:26 PM. Electronically signed and approved by: Andreea Laboy M.D. Radiologist
== END | disposition home or self-care (01) ==
LOC: RADMAMWWP 09:59
PROVIDERS: ATTEND Surgery
DX: Z12.31 Encounter for screening mammogram for malignant neoplasm of breast (principal); R92.333 Mammographic heterogeneous density, bilateral breasts; Z80.3 Family history of malignant neoplasm of breast; Z78.0 Asymptomatic menopausal state
CPT/HCPCS: 77063; 77067

== ENCOUNTER → 2025-02-18 | Outpatient (CLI) | payer MEDICARE ==
--- NOTE | 2025-02-18 10:12 | P.PN ---
Subjective Progress Note Date: 02/18/25 Principal diagnosis: high risk breast cancer 02-18-25 Principal diagnosis: ALH 09/05/23 Chief Complaint: Abnormal right breast mammogram Rica is an 78-year-old white female seen in consultation for Dr. Ferguson regarding an ultrasound-guided core biopsy of the right breast. The patient underwent a bilateral mammogram on 4423. This was felt to be incomplete BIRAD 0 and additional right breast ultrasound and bilateral diagnostic mammograms [place]. [place] [address]. Stable nodule in the 6 o'clock position of the right breast was identified and postoperative distortion was seen bilaterally. A diagnostic breast ultrasound of the right was recommended[place] [address] and it was felt to be probably benign BIRADS 3 diagnostic breast ultrasound of the right breast in 6 months was recommended. The patient had a repeat ultrasound performed on [id number]. This was considered suspicious BIRADS 4 and ultrasound-guided core biopsy was recommended. This was performed on [id number]. The ultrasound core biopsy revealed fibrocystic changes including cysts, fibrosis, apocrine metaplasia, and columnar cell change. The post biopsy mammogram was reviewed with Dr. Ji. On this mammogram there were noted to be increased microcalcifications in the anterior upper breast and stereotactic core biopsy was recommended. The core biopsy and ultrasound were felt to be concordant. She has had multiple bilateral needle biopsies of the breast which were benign. She has never had an open biopsy of the breast. She had a stero biopsy of the right breast on 09-12-23. This showed ALH. She was offered chemoprevention and declined. Bilateral mammogram on 02-10-24 BIRAD 2, personally reviewed. Patient recently fell fracturing 2 bones in her left hand requiring surgery approximately 2 weeks ago. She is doing well at this time. She is not complaining of any new lumps masses or nodules of concern in either breast. She has not had any recent trauma or infection in the breast. She is not complaining of any nipple discharge or skin changes. 02-18-25 Rica is an 79 year old female with a biopsy diagnosis of ALH. She has declined chemoprophylaxis. Her most recent mammogram wa on 02-10-25 and was BIRAD 2. This was personally interpreted. She has dementia and is seen with her . She has declined chemoprevention. Isael Risk: 5 year: 4.2% lifetime: 6.0% Caffeine: chi tea daily nicotine: none; 50 years ago stopped chocolate: weekly BCP: none hormones: none Family History: none Hormonal History: menarche: 11 , breat fed: yes, age at first : 19 menopause: 48 Surgical history: hernia repair left side left knee left hip fracture two bones in the left hand/ surgery Medical history: dementia Alzheimer hypothyroid Social history: Nicotine: Negative Alcohol: three times a week drugs: none - Constitutional Constitutional: Denies chills, Denies fever - EENT Eyes: denies blurred vision, denies pain Ears: bilateral: decreased hearing, deny: tinnitus Ears, nose, mouth and throat: Denies headache, Denies sore throat - Breasts Breasts: bilateral: as per HPI - Cardiovascular Cardiovascular: Denies chest pain, Denies shortness of breath - Respiratory Respiratory: Denies cough - Gastrointestinal Gastrointestinal: Denies abdominal pain, Denies diarrhea, Denies nausea, Denies vomiting - Genitourinary (Female) Genitourinary: Denies dysuria, Denies hematuria - Menstruation Menstruation: Reports postmenopausal - Musculoskeletal Musculoskeletal: Denies myalgias - Integumentary Integumentary: Denies pruritus, Denies rash - Neurological Neurological: Denies numbness, Denies weakness - Psychiatric Comment: dementia Psychiatric: Reports depression, Denies anxiety - Endocrine Endocrine: Denies fatigue, Denies weight change - Hematologic/Lymphatic Comment: none - Allergic/Immunologic Allergic/Immunologic: Reports as per HPI Past Medical History Past Medical History: Hearing Disorder / Deafness, Hyperlipidemia, Osteoarthritis (OA), Skin Disorder, Thyroid Disorder Additional Past Medical History / Comment(s): Other HX: LICHEN PLANUS OCC ON SKIN. VARICOSE VEIN. 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 dementia dx 2022 History of Any Multi-Drug Resistant Organisms: None Reported Past Surgical History: Breast Surgery, Ear Surgery, Joint Replacement, Orthopedic Surgery Additional Past Surgical History / Comment(s): 09/13/15 Total L knee arthroplasty. Other SX: BREAST BIOPSIES. LT STAPEDECTOMY. Decompression of LT Facial Nerve. D&C 2012. left hip replacement Past Anesthesia/Blood Transfusion Reactions: No Reported Reaction Past Psychological History: Depression Additional Psychological History / Comment(s): NO CURRENT PROB. Pt resides with her spouse. She is independent. Smoking Status: Former smoker Past Alcohol Use History: Occasional Additional Past Alcohol Use History / Comment(s): Pt started smoking in 1968 and quit in 1974 Past Drug Use History: None Reported - Past Family History Mother Brother(s) Family Medical History: Deep Vein Thrombosis (DVT) Father Brother(s) Family Medical History: Cancer Mother Family Medical History: Deep Vein Thrombosis (DVT) Additional Family Medical History / Comment(s): Mother at age 46yrs of post op blood clots. Father Family Medical History: Cancer, Coronary Artery Disease (CAD) Additional Family Medical History / Comment(s): Father of prostate cancer at age 72 yrs. Medications and Allergies Home Medications Medication Instructions Recorded Confirmed Type Simvastatin [Zocor] 40 mg PO HS 04/03/14 09/05/23 History Citalopram Hydrobromide [CeleXA] 20 mg PO DAILY 02/03/21 09/05/23 History Levothyroxine Sodium [Synthroid] 112 mcg PO DAILY 02/03/21 09/05/23 History cycloSPORINE [Restasis] 1 drop LEFT EYE BID 02/03/21 09/05/23 History Cholecalciferol [Vitamin D3 (25 25 mcg PO DAILY 04/19/23 09/05/23 History Mcg = 1000 Iu)] Diclofenac Sodium Gel [Voltaren 2 gm TOPICAL QID PRN 04/19/23 09/05/23 History Gel] Mv-Min/Folic/Vit K/Lut/Hpyj593 1 each PO DAILY 04/19/23 09/05/23 History [Alive Women's 50 Plus Tablet] tadalafiL 2.5 mg PO HS 04/19/23 09/05/23 History B12/Methyltetrahydrofolate/B6 1 each PO DAILY 04/23/23 09/05/23 History [Methyl B-12 and Folate Chew Tb] Donepezil HCl [Aricept ODT] 10 mg PO DAILY 08/19/23 09/05/23 History Allergies Allergy/AdvReac Type Severity Reaction Status Date / Time Sulfa (Sulfonamide Allergy Rash/Hives Verified 09/05/23 09:41 Antibiotics) Objective - Constitutional General appearance: Present: cooperative - EENT Eyes: Present: EOMI ENT: Present: hearing grossly normal - Neck Neck: Present: normal ROM - Respiratory Respiratory: bilateral: CTA - Cardiovascular Rhythm: regular Heart sounds: normal: S1, S2 - Integumentary Integumentary: Present: normal turgor - Musculoskeletal Musculoskeletal: Present: gait normal - Psychiatric Psychiatric: Present: A&O x's 3, appropriate affect, intact judgment & insight - Additional findings Additional findings: Breast Exam: BRA: 34G Inspection: Bilateral grade 3 ptosis Palpation: Right breast: no dominant masses or nodules of concern of multiple positional exam, right breast larger than left breast Right axilla: No adenopathy of concern Left breast: No dominant masses or nodules of concern Left axilla: No adenopathy of concern Assessment and Plan Assessment: Impression: Fibrocystic breast changes bilateral mammogram 02-10-25 BIRAD 2, personally reviewed and interpreted Dementia Plan: bilateral mammogram in 1 year with examination at that time We have again discussed chemoprophylaxis which they have declined and at this time the patient is going to be watched conservatively CC: Dr. Ferguson
[2025-02-18 10:13] VITALS: BP 126/69; PULSE 68; RESP 17; TEMP 97.5
== END ==
LOC: WWCWWP 09:37
PROVIDERS: ATTEND Surgery
DX: Z12.31 Encounter for screening mammogram for malignant neoplasm of breast (principal); N60.11 Diffuse cystic mastopathy of right breast; Z88.2 Allergy status to sulfonamides; Z87.891 Personal history of nicotine dependence